=== PATIENT | female | born 1940 | race Caucasian/White ===

== ENCOUNTER 2017-11-25 08:04 | Outpatient (CLI) | payer MEDICARE | END 2017-11-25 08:05 | disposition home or self-care (01) | LOC: BICCT 08:04 | PROVIDERS: ATTEND Internal Medicine Gastroenterology | DX: K57.30 Diverticulosis of large intestine without perforation or abscess without bleeding (principal) | CPT/HCPCS: 74177; 82565 ==

== ENCOUNTER 2018-09-23 12:37 | Outpatient (CLI) | payer MEDICARE ==
[2018-09-23] MEDS ORDERED: ISOVUE-370 76%-LOCM 1 ML ONE (15:09)
--- NOTE | 2018-09-23 15:52 | CT ---
CT OF THE ABDOMEN AND PELVIS WITH IV CONTRAST 09/23/18 PROVIDED CLINICAL HISTORY: Constipation. History of diverticular stricture. FINDINGS: Comparison is made with the study dated 11/25/17. The visualized lung bases are free of significant opacity. The liver, spleen, pancreas, kidneys, and adrenal glands demonstrate an unremarkable CT appearance. There is prominent mural thickening involving the majority of the sigmoid colon, which appears simila r to the prior examination. There is minimal noncircumscribed fluid density present at the left later al margin of the descending colon/sigmoid colon junction as well as within the left paracolic gutter cranially. There is prominent distention by fecal material and gas of the remainder of the colon, wit h the cecal diameter measuring up to 9 cm. There is no small bowel dilatation. There is no evidence f or pneumatosis or portal venous gas. No inflammatory fat stranding is evident. No regional lymph node enlargement evident. Vascular calcif ications are seen. The osseous structures demonstrate no concerning osteoblastic or osteolytic lesions. IMPRESSION: Findings compatible with at least high grade partial obstruction at the level of the sigmoid colonic mucosal thickening, by history related to diverticular disease though carcinoma could have a similar appearance by CT. Findings communicated to the physician on-call, Dr Vargas, at 1556, 09/23/18. POS: OFF
== END 2018-09-23 12:38 | disposition home or self-care (01) ==
LOC: BICCT 12:37
PROVIDERS: ATTEND Physician Assistant Medical
DX: K57.30 Diverticulosis of large intestine without perforation or abscess without bleeding (principal); K59.00 Constipation, unspecified; K63.89 Other specified diseases of intestine
CPT/HCPCS: 74177; Q9966

== ENCOUNTER 2018-09-26 18:27 | Inpatient (IN) | payer MEDICARE ==
[2018-09-26] MEDS ORDERED: Ondansetron PF 4 MG/2 ML Vial ONE ×2 (18:58→22:32)
[2018-09-26 19:05] LABS: Hemoglobin 15.9 g/dL (12.0-16.0); Mean Corpuscular HGB CONC 32.7 g/dL (32.0-36.0); Mean Corpuscular Hemoglobin 33.1 pg (27.0-31.0); Mean Platelet Volume 6.9 fL (7.4-10.4); Platelet Count 494 thou/uL (130-400); RBC Distribution Width 11.3 % (11.5-14.5); White Blood Cell (WBC) Count 14.2 thou/uL (4.8-10.8)
[2018-09-26 19:23] LABS: Band 8 % (5-11); Lymphocytes 11 % (21-51); MDiff Complete? YES; Monocytes 4 % (0-10); Neutrophil 77 % (42-75); Platelet Morphology Comment Appears Increased; RBC Morphology Normal
[2018-09-26 19:47] LABS: ALT (SGPT) 21 U/L (8-55); AST (SGOT) 27 U/L (5-34); Albumin 4.2 g/dL (3.4-4.8); Alkaline Phosphatase 79 U/L (40-150); Anion Gap 24 mmol/L (10-20); BUN (Urea Nitrogen) 30 mg/dL (9.8-20.1); Bilirubin, Total 0.5 mg/dL (0.2-1.2); CK (CPK) 37 U/L (29-168); Calc. Creatinine Clearance 0 mL/min (70-130); Calcium 10.4 mg/dL (7.8-10.44); Carbon Dioxide 19 mmol/L (23-31); Chloride 92 mmol/L (98-107); Estimated GFR-MDRD 25; Globulin 4.1 g/dL (2.4-3.5); Glucose 140 mg/dL (83-110); Lipase 16 U/L (8-78); Potassium 5.1 mmol/L (3.5-5.1); Protein, Total 8.3 g/dL (6.0-8.3); Sodium 130 mmol/L (136-145)
[2018-09-26 20:53] LABS: Bilirubin Moderate (Negative); Blood, Urine Negative (Negative); Clarity CLOUDY (Clear); Glucose, Urine (Dipstick) Negative (Negative); Leukocyte Trace (Negative); Nitrite Negative (Negative); Protein, Urine (Dipstick) 30 mg/dL (Neg-Trace); Specific Gravity, Urine 1.011 (1.002-1.036); pH, Urine 6.5 (5.0-9.0)
[2018-09-26 20:57] LABS: Bacteria/HPF None Seen HPF (None Seen)
[2018-09-26 20:58] LABS: Pathc Cast-AUWi Flag 4.08 (0-2.49)
--- NOTE | 2018-09-26 21:03 | RAD ---
CHEST ONE VIEW ABDOMEN TWO VIEWS: History: Abdominal pain and distention. FINDINGS: The heart size is normal. The aorta is tortuous. The lungs are expanded without lobar consolidation, pneumothoraces, or pleural effusions. No free is seen. Air is noted in the dilated loops of bowel with differential air fluid levels. There is air in the colon. The possibility of high grade obstruction should be considered, particularly in the distal colon. POS: [facility]
[2018-09-26 21:06] LABS: RBC/HPF 0-3 HPF (0-3)
[2018-09-26] MEDS ORDERED: Lidocaine Viscous Sol 2% 15 ml UD Cup ONE (22:13)
[2018-09-26] MEDS ORDERED: Benzocaine 20% Spray 60 ML CAN ONE (22:13)
[2018-09-26] MEDS ORDERED: Morphine 2 MG/ML SYRINGE ONE (22:32)
[2018-09-26] MEDS ORDERED: Ondansetron ODT 4 MG TAB SL PRN (22:57)
[2018-09-26] MEDS ORDERED: Ondansetron PF 4 MG/2 ML Vial IVP PRN (22:57)
[2018-09-26] MEDS ORDERED: Acetaminophen 325 MG TAB PO PRN (22:57)
[2018-09-26] MEDS ORDERED: Sodium Chloride 0.9% 1,000 ML IV SCH (22:57)
[2018-09-26] MEDS ORDERED: Morphine 4 MG/ML VIAL SLOW IVP PRN (23:00)
--- NOTE | 2018-09-26 23:17 | RAD ---
CHEST ONE VIEW: Date: 09-26-18 Time: 10:23 p.m. History: Injury. Chest pain. FINDINGS/IMPRESSION: There has been interval placement of a nasogastric tube with tip in the projection of the stomach. r is noted in loops of small and large bowel. POS: [facility]
[2018-09-26] MEDS: metroNIDAZOLE 500 MG in Premix Bag 1 BAG IVPB SCH (23:34)
[2018-09-27] MEDS: Sodium Chloride 0.9% 1,000 ML IV SCH ×3 (04:37→16:06)
[2018-09-27 05:27] LABS: #Eosinphils 0.1 thou/uL (0.0-0.7); #Lymphocytes 1.5 thou/uL (1.20-3.40); #Monocytes 0.6 thou/uL (0.11-0.59); #Neutrophils 8.1 thou/uL (1.40-6.50); %Basophils 0.1 % (0.0-1.0); %Eosinophils 0.7 % (0.0-10.0); %Lymphocytes 14.1 % (21.0-51.0); %Monocytes 6.2 % (0.0-10.0); %Neutrophils 78.9 % (42.0-75.0); Hemoglobin 13.2 g/dL (12.0-16.0); Mean Corpuscular HGB CONC 31.6 g/dL (32.0-36.0); Mean Corpuscular Hemoglobin 32.3 pg (27.0-31.0); Mean Platelet Volume 6.8 fL (7.4-10.4); Platelet Count 415 thou/uL (130-400); RBC Distribution Width 11.2 % (11.5-14.5); Red Blood Cell (RBC) Count 4.09 mill/uL (4.20-5.40); White Blood Cell (WBC) Count 10.3 thou/uL (4.8-10.8)
[2018-09-27 05:40] LABS: Anion Gap 16 mmol/L (10-20); BUN (Urea Nitrogen) 29 mg/dL (9.8-20.1); Calc. Creatinine Clearance 38 mL/min (70-130); Calcium 8.9 mg/dL (7.8-10.44); Carbon Dioxide 23 mmol/L (23-31); Chloride 100 mmol/L (98-107); Estimated GFR-MDRD 31; Glucose 104 mg/dL (83-110); Magnesium 1.6 mg/dL (1.6-2.6); Phosphorus 4.5 mg/dL (2.3-4.7); Potassium 4.2 mmol/L (3.5-5.1); Sodium 135 mmol/L (136-145)
[2018-09-27] MEDS: metroNIDAZOLE 500 MG in Premix Bag 1 BAG IVPB SCH ×3 (06:16→22:44)
--- NOTE | 2018-09-27 08:19 | CON ---
DATE OF CONSULTATION: REASON FOR CONSULTATION: I was asked to see Ms. Lopez by the emergency room physicians here at [facility]. She presented with abdominal distention and hypertension. HISTORY OF PRESENT ILLNESS: Ms. Lopez is a 77-year-old female, known me from previous evaluations. I have seen her for several years for screening colonoscopies. She came into the office on , four days ago with complaints about a month worth of distention and difficulty having bowel movements. She had no real pain or fever. She has had known stricturing in the sigmoid colon and last had a colonoscopy last summer, at which time we had to use an EGD scope to advance beyond this area. After that, we had to perform a CAT scan, which showed no symptoms of obstruction at that time. CAT scan revealed thickening in the sigmoid colon, something more chronic than acute. We discussed possibility of need for resection. She had no symptoms at that time. She had no evidence of malignancy on her endoscopy and she had normal labs and weight. We placed her on high-fiber diet with some laxatives and Metamucil and she apparently was doing fine. She states around in 2018, she had a bout of what she thought was a gastroenteritis and had a lot of problems with her bowels, but then was doing fine until about a month ago when new symptoms began. She had a normal CBC and comprehensive metabolic profile in the office on Wednesday. She had a CAT scan of the abdomen and pelvis, which apparently showed high-grade sigmoid obstruction. She has continued to pass gas and have small bowel movements, in fact her last bowel movement was yesterday, but in talking with her about these results today, she seemed pretty uncomfortable. We advised her to come to the hospital. Here in the emergency room on arrival, she had a temperature 97, O2 saturation 96% on room air, pulse of 89. In the emergency room, nurse tells me blood pressure in the 80s, however, the lowest I see here at 1839 is 100/36. In triage, apparently did appear somewhat pale and diaphoretic. Initial pulse in the ER was 124, blood pressure initially was 100/36. She has received 2 L of fluid here. She had a comprehensive metabolic profile that showed a sodium of 130, potassium 5.1, chloride 92, bicarb of 19, anion gap calculated at 19, BUN of 30, creatinine of 1.96, glucose of 140. Normal liver function tests. Albumin of 4.2, lipase 16, TSH of 3.5, and a troponin less than 0.01. Her lactic acid was 1.6. Her white count was 14.2, hemoglobin 15.9, MCV 101, platelet count 494. By comparison, labs from showed a white count of 7.9, hemoglobin 13.8, platelet count of 400, MCV of 93, glucose of 106, calcium 10.7. BUN and creatinine of 22 and 1.1 at that time. Sodium is 137, potassium is 5.4. Presently, she states she feels pretty uncomfortable, but no overt pain. She just feels tight. She feels nauseated, but has not thrown up. She has really just had some liquids over the weekend, but not much. Again, she has had a bowel movement yesterday. She has noted no blood in her stool. No fever. No dysuria, frequency, or urgency. PAST MEDICAL HISTORY: Notable for hypertension, hypothyroidism, and hyperlipidemia. She has had polyps with last colonoscopy in November of 2017. PAST SURGICAL HISTORY: She had a hysterectomy and has had children. No other surgeries. SOCIAL HISTORY: She drinks cold drinks a day. She does not drink more than four drinks a day. She does not use drugs. She does not smoke and has not in the past. MEDICATIONS: In the emergency room, she received 2 L of normal saline. She has received, 1. Some Zofran. 2. Uloric 80 mg. 3. Furosemide 20 mg every other day. 4. Benicar 40 mg once daily. 5. Paroxetine 37.5 mg daily. 6. Omeprazole 40 mg daily. 7. Levothyroxine 88 mcg daily. REVIEW OF SYSTEMS: GENERAL: She denies chills or fever. HEENT: Denies redness, eye discharge, change in vision. Negative for oral abnormalities, difficulty swallowing, or throat pain. CV: Denies chest pain, shortness of breath, or diaphoresis. RESPIRATORY: Denies cough or shortness of breath. GI: She has some diffuse abdominal discomfort, decreased appetite, constipation, inability to eat, to me she denied vomiting, but the emergency room physician noted she has vomited. She does feels nauseated and feels like she will vomit, if she eats much, so she has not been. No hematochezia, hematemesis, melena, or hematochezia. : Negative for dysuria, frequency, or urgency. SKIN: Negative for rashes or lesions. NEUROLOGIC: No history of focal weakness, TIA, stroke, or gait changes. PSYCHIATRIC: She is on the antidepressant medicine and is doing well with that and has no depression issues. PHYSICAL EXAMINATION: VITAL SIGNS: Most recent vital signs, pulse down to the 80s, blood pressure 134/67, afebrile. T-max of 98.7 at 2135. GENERAL: She is little bit pale. SKIN: Slightly clammy. She is not diaphoretic. She is perfusing well in the extremities. HEENT: Oropharynx is dry. Conjunctivae and sclerae clear. NECK: Supple. No adenopathy. HEART: Regular rate and rhythm without clicks, rubs, or murmurs. LUNGS: Clear. LYMPHATICS: There is no adenopathy in the neck, axillary, or inguinal regions. ABDOMEN: There is no fresh scar in the lower abdomen except previous hysterectomy. She has no bowel sounds. She is nontender. She is tympanitic. There is no rebound or guarding. She does not appear to be in pain. EXTREMITIES: No clubbing, cyanosis, or edema. SKIN: Without rash or lesions. NEUROLOGIC: She moves everything in the upper and lower extremities with equal strength. Extraocular muscle intact. Cranial nerves are intact. RECTAL: Reveals soft stool in the vault. KUB here reveals distention of small and large bowel, possibly some gastric distention. The radiologist is concerned about this obstruction. IMAGING: I have reviewed the CAT scan from 09/23. The cecum was dilated at 9 cm at that time. She had thickening in the sigmoid colon, which was really no different than a CAT scan from November of 2017. There is no inflammatory stranding present. No lymph node enlargement or vascular calcifications. Minimal non-circumscribed fluid density at the left lateral margin, descending colon, sigmoid colon junction as well as in the left paracolic gutter. There is distention offecal matter material and gas remainder of the colon, cecal diameter 9 cm. No small bowel dilatation was seen on that study. There was no pneumatosis on that study that was from Wednesday. I reviewed her KUB from today as well. There is no free air. Otherwise, I agree with the report from the radiologist. There are jakob on her CAT scan and x-ray consistent with previous hysterectomy in low pelvis, bladder was nondistended. ASSESSMENT: This is a 77-year-old female. Her last colonoscopy was in November of 2017. At that time, we had to traverse the sigmoid colon with the upper GI scope. All polyps have been benign. She did carry a diagnosis of ulcerative colitis, but only pathology ever found on that where she had been scoped previously in [place] was of microscopic colitis. All the biopsies I have taken in 2014/2015 showed normal colon with no underlying colitis in remission or active and no dysplasia. She did have a small polyp in the right colon. This was called sporadic adenoma and that was consistent with the fact that there was no signs of acute or chronic colitis or old colitis changes in the colon region. At this time, I think she developed a sigmoid obstruction from severe diverticular disease. She does not appear to have acute diverticulitis. The fluid stranding is probably related to distention inflammation. However, I think we should empirically cover with antibiotics. Her leukocytosis is likely related to her dehydration and stress. She has received 2 L of fluid here, but will need to receive more. I have talked with Dr. Kvng De Luna, General Surgery about her condition, but I do not think she needs emergency surgery tonight, but will likely need surgery tomorrow. He understands this. We will plan to see her in the morning with his other changes. I have explained to the patient that she will likely need a diverting ostomy as she is not going to be able to prepped. She is still passing small amounts of gas and had a small bowel movement yesterday, but with the amount of distention shown, I do not think she will be able to drink a bowel prep and I do not think it would be safe to try to give her enemas from below due to risk of perforation. Dehydration secondary to poor p.o. intake with hyponatremia, little bit elevated BUN and creatinine. On last assessment, there seems to be no signs of infarction or ischemia. She has a normal lactic acid. PLAN: Admission to the hospital. IV fluids, normal saline 100 an hour, ulcer prophylaxis with Protonix. Zofran for nausea. We will place NG tube and see if we can decompress her small bowel and stomach if those are in fact distended. She will have repeat labs tomorrow morning. Plan, we are going to start Levaquin and Flagyl empirically this evening as well. We will start PlexiPulse for DVT prophylaxis. She will likely have surgery tomorrow. Job ID: [id number]
--- NOTE | 2018-09-27 10:31 | CON ---
DATE OF CONSULTATION: CHIEF COMPLAINT: Nausea, abdominal distention, and abdominal pain. HISTORY OF PRESENT ILLNESS: The patient is a 77-year-old female with a known sigmoid stricture presumably secondary to diverticular disease, who over the last couple of weeks has been having progressive abdominal distention and nausea. She is passing a little flatus. She has not vomited. She says last bowel movement was about a day and a half ago. PAST MEDICAL HISTORY: Significant for hypertension, hypothyroidism. PAST SURGICAL HISTORY: She has had a hysterectomy, spontaneous vaginal delivery. MEDICATIONS: 1. Uloric 80 mg daily. 2. Torsemide 20 mg every other day. 3. Benicar 40. 4. Paroxetine 37.5. 5. Omeprazole and levothyroxine. ALLERGIES: SHE HAS ALLERGIES TO ASPIRIN AND CODEINE. SOCIAL HISTORY: She is , retired. No tobacco. Social alcohol. FAMILY HISTORY: She has an aunt with history of colon cancer. Her mother had cervical cancer and lung cancer. Father had lung cancer and COPD. PHYSICAL EXAMINATION: VITAL SIGNS: Temperature 98.7, pulse 84, blood pressure 116/70. GENERAL: She is awake, alert. She has an NG tube in place, but nothing coming out. HEENT: Otherwise unremarkable. LUNGS: Clear. HEART: Regular rate and rhythm. ABDOMEN: Obese, distended. No significant tenderness. She has well-healed surgical scar, Pfannenstiel. EXTREMITIES: Unremarkable. LABORATORY DATA: Her white count is 10.3, H and H are 13 and 41, and platelet count of 415. Electrolytes are fine. Urinalysis, 7 to 10 white cells. Acute abdominal series show dilated loops of both large and small bowel consistent with a high-grade obstruction of the distal colon. ASSESSMENT: Large bowel obstruction. PLAN: Laparotomy, sigmoid colon resection, Vanesa procedure. I have discussed the planned procedure as well as risk of bleeding, infection, injury to bowel and bladder, she understands and gives informed consent. Job ID: [id number]
[2018-09-27] MEDS ORDERED: Sodium Chloride 0.9% 1,000 ML IV SCH (11:15)
--- NOTE | 2018-09-27 18:12 | HP ---
CHIEF COMPLAINT: Abdominal pain with nausea and vomiting. HISTORY OF PRESENT ILLNESS: Ms. Lopez is a very pleasant 77-year-old woman, who presented to the ER yesterday due to persistent abdominal pain associated with nausea and vomiting. The patient states her symptoms first started last week when she began to experience abdominal distention and unable to empty her bowels. As the week progressed, she began to experience vomiting and became unable to tolerate any oral intake. She developed dry heaving over the weekend despite no longer eating or drinking. Due to increasing abdominal pain, she decided to seek medical attention. The patient had reached out to Dr. Worthington, who prompted her to come to the ER. She did undergo a CT scan on Wednesday, on September 23, and noted to have findings consistent with a high-grade partial obstruction at the level of the sigmoid colon. The patient states she does have a history of diverticular disease and has issues with her bowels every few months. On presentation to the ER, she underwent further investigations including a chest x-ray that demonstrated placement of an NG tube. Air was noted in the loops of small and large bowel. She also underwent an acute abdominal series that showed no free air. There was air again noted in the dilated loops of bowel with differential air-fluid levels and air in the colon. Findings were felt to be consistent with a possible high-grade obstruction, particularly in the colon. The patient was admitted for further management. The case was discussed with Dr. Worthington as well as Dr. De Luna. Since the admission, the patient has been receiving IV hydration and was started on Protonix. She was given Zofran for nausea and vomiting, and since then, her vomiting has subtle. NG tube has been removed. Dr. Worthington did start the patient on empiric IV antibiotics including Levaquin and Flagyl. She was seen by Dr. De Luna, who had recommended surgery. She had plans to undergo laparotomy with sigmoid colon resection, Vanesa procedure this morning. The patient, however, began to move her bowels early today and has had 4 very large bowel movements without any bright red blood in her stools or melena. She has remained n.p.o., and has not had any nausea or vomiting. The patient is eager to find out if surgery is still required or if she would be able to resume her diet and go home. REVIEW OF SYSTEMS: The patient denies having any fevers, chills, or sweats. Denies having any headaches or dizziness. Again, has had no further nausea or vomiting. Denies any abdominal pain. Still continues with abdominal distention, but this has significantly improved from initial presentation. No urinary symptoms. She has moved 4 very large bowel movements today without any straining or abdominal cramping. Denies having any chest pain, palpitations, or shortness of breath. No lower leg edema. All other review of systems is negative. PAST MEDICAL HISTORY: 1. Hypertension. 2. Hypothyroidism. 3. Diverticular disease. 4. GERD. 5. Gout. PAST SURGICAL HISTORY: 1. Hysterectomy. 2. Spontaneous vaginal delivery. SOCIAL HISTORY: The patient is and retired. She lives with her . Denies any tobacco use. She drinks alcohol socially and denies any illicit drug use. FAMILY HISTORY: Her father had lung cancer and COPD. Her mother was diagnosed with cervical cancer and lung cancer. Her aunt was diagnosed with colon cancer. ALLERGIES: 1. ASPIRIN. 2. CODEINE. 3. PENICILLIN. CURRENT MEDICATIONS: 1. Ergocalciferol. 2. Paroxetine. 3. Olmesartan. 4. Torsemide. 5. Rosuvastatin. 6. Levothyroxine. 7. Febuxostat. PHYSICAL EXAMINATION: GENERAL: The patient appears well developed, well nourished, and is in no acute distress. VITAL SIGNS: Temperature 98.4, pulse 103, respirations 16, O2 saturation 92% on room air, BP 116/73. HEENT: Normocephalic and atraumatic. Pupils are equal, round, and reactive to light. Sclerae without icterus. Oropharynx is clear. NECK: Supple without lymphadenopathy. LUNGS: Clear to auscultation bilaterally without wheezes, rales, or rhonchi. CARDIAC: Regular rate and rhythm. ABDOMEN: Soft, but notably distended. Hypoactive bowel sounds present. No guarding or rigidity. No renal angle tenderness. EXTREMITIES: Without any lower leg edema or calf swelling/tenderness. Mechanical SCDs in place. LABORATORY DATA: White blood count 10.3, improved from 14.2 on initial presentation; hemoglobin 13.2; hematocrit 41.2; platelets 415. Sodium 135; potassium 4.2; chloride 100; anion gap 16; BUN 29; creatinine 1.6 today, improved from 1.86; eGFR 31, improved from 25; glucose 104. Lactic acid on initial presentation was 1.6. Calcium 8.9. Phosphorus 4.5. Magnesium 1.6. LFTs, unremarkable. TSH 3.5181. Lipase 16. IMAGING DATA: As mentioned above in HPI. IMPRESSION AND PLAN: Ms. Lopez is a very pleasant 77-year-old woman, who is being admitted for management of the followin. Partial large bowel obstruction. The patient has had significant improvement in nausea and vomiting, and her abdominal pain has fully resolved. She does continue with abdominal distention, though she states that it significantly improved to what it was yesterday. She has been able to move a large amount of stool 4 times. There were plans for her to undergo laparotomy with sigmoid colon resection and Vanesa procedure; however, this was canceled given the fact that she has moved her bowels. Dr. De Luna has re-evaluated the patient, and given the fact that she is still distended, I feel she would benefit from sigmoid colon resection, but may no longer require a diverting colostomy. The plan is for her to proceed with surgery tomorrow. Per the patient, he has advised she may continue clear liquid diet this evening and remain n.p.o. at midnight. Further plans as per Surgical Team. 2. Hypertension. Her blood pressure is controlled. We will resume home medications, but hold medications if blood pressure is on the low side. 3. Acute kidney injury. Improving following IV fluids. She is on her torsemide at home. Has no evidence of lower limb edema at present, and lungs are clear. However, to avoid fluid overload, we will cut down her IV fluids to 55 mL an hour while she is taking foods and may bump up to 75 mL an hour at midnight when she is n.p.o. We will check BNP. 4. Hypothyroidism. Resume home medication. 5. Code status. The patient was placed on full code status at initial presentation; however, at present, she is expressing she wishes to be DNR. I have placed a consultation to Palliative Care for discussion of advanced directives. 6. Deep venous thrombosis prophylaxis. Mechanical SCDs in place. The patient's case was discussed with Dr. Sam, who agrees with plan of care as described above. Job ID: [id number]
--- NOTE | 2018-09-27 19:11 | PRG ---
DATE OF SERVICE: 09/27/2018 SUBJECTIVE: Ms. Lopez actually had several bowel movements today and she is actually feeling better. Dr. De Luna decided to hold off and we are going to re-evaluate her tomorrow. OBJECTIVE: VITAL SIGNS: Temperature is 98, pulse is 101, blood pressure 125/65. LUNGS: Clear. HEART: Regular rate and rhythm without clicks or murmurs. ABDOMEN: Soft, positive bowel sounds. EXTREMITIES: No clubbing, cyanosis, or edema. LABORATORY DATA: White count 10.3, hemoglobin is 13.2, and platelet count 415. Sodium 135. BUN and creatinine of 29 and 1.63. ASSESSMENT: High-grade obstruction, sigmoid colon, likely related to chronic diverticular disease. It may be an acute component. RECOMMENDATIONS: Repeat labs tomorrow. If the patient continues to have bowel movements, we will give a bit of MiraLAX. We will start that this evening and may be she can get a bowel prep, so she can get a full colonoscopy. Job ID: [id number]
[2018-09-27] MEDS ORDERED: Polyethylene Glycol 3350 17 GM Packet PO SCH (19:45)
[2018-09-27] MEDS ORDERED: Famotidine/PF 20 mg/2ml Vial SLOW IVP SCH (21:00)
[2018-09-28] MEDS: Sodium Chloride 0.9% 1,000 ML IV SCH (02:45)
[2018-09-28] MEDS: Levothyroxine Sodium 88 MCG TAB PO SCH (05:01)
[2018-09-28] MEDS: metroNIDAZOLE 500 MG in Premix Bag 1 BAG IVPB SCH ×3 (06:15→23:32)
[2018-09-28 06:52] LABS: #Eosinphils 0.1 thou/uL (0.0-0.7); #Lymphocytes 1.1 thou/uL (1.20-3.40); #Monocytes 0.7 thou/uL (0.11-0.59); #Neutrophils 4.8 thou/uL (1.40-6.50); %Lymphocytes 16.1 % (21.0-51.0); %Monocytes 10.2 % (0.0-10.0); %Neutrophils 71.8 % (42.0-75.0); Hemoglobin 12.9 g/dL (12.0-16.0); Mean Corpuscular Hemoglobin 32.8 pg (27.0-31.0); Mean Platelet Volume 6.7 fL (7.4-10.4); Platelet Count 394 thou/uL (130-400); RBC Distribution Width 11.2 % (11.5-14.5); Red Blood Cell (RBC) Count 3.93 mill/uL (4.20-5.40); White Blood Cell (WBC) Count 6.7 thou/uL (4.8-10.8)
[2018-09-28 06:58] LABS: Anion Gap 15 mmol/L (10-20); BUN (Urea Nitrogen) 18 mg/dL (9.8-20.1); Calc. Creatinine Clearance 57 mL/min (70-130); Calcium 9.4 mg/dL (7.8-10.44); Carbon Dioxide 25 mmol/L (23-31); Chloride 103 mmol/L (98-107); Estimated GFR-MDRD 49; Glucose 104 mg/dL (83-110); Potassium 5.3 mmol/L (3.5-5.1); Sodium 138 mmol/L (136-145)
[2018-09-28] MEDS ORDERED: GoLYTELY 4,000 ml Bottle PO SCH (09:00)
--- NOTE | 2018-09-28 09:22 | PRG ---
DATE OF SERVICE: 09/28/2018 SUBJECTIVE: The patient has been having multiple bowel movements. No nausea or vomiting. OBJECTIVE: VITAL SIGNS: Temperature 97.8, pulse 94, blood pressure 140/81. GENERAL: She is awake, alert. ABDOMEN: Still massively distended and tympanic, but nontender. ASSESSMENT: Partial bowel obstruction. PLAN: We will try a slow prep. If it is successful and able to decompress her gut, she may be able to tolerate resection and primary anastomosis, however, if unable to, we will plan on diverting colostomy. Job ID: [id number]
[2018-09-28] MEDS: Torsemide 20 MG TAB PO SCH (09:52)
[2018-09-28] MEDS: PARoxetine CR 12.5 MG TAB PO SCH (09:53)
[2018-09-28] MEDS: Rosuvastatin 10 MG TAB PO SCH (09:54)
[2018-09-28] MEDS: Polyethylene Glycol 3350 17 GM Packet PO SCH (09:58)
--- NOTE | 2018-09-28 16:20 | PRG ---
DATE OF SERVICE: 09/28/2018 SUBJECTIVE: Ms. Lopez is having bowel movements with her bowel prep. She is without complaints. Temperature is 98, pulse 94 to 103, blood pressure 138/79. I did not examine her abdomen as she is sitting on the commode as we speak. ASSESSMENT: High-grade sigmoid colon obstruction felt to be from chronic diverticular disease. She had CAT scan findings suggestive this without obstruction back last fall. Now, she presents with subacute obstruction. She has improved some with antibiotics. I have talked with her with Dr. De Luna. She is tolerating a prep. We are going to proceed with sigmoid resection tomorrow. She has had a recent colonoscopy with no signs of malignancy just last summer. We will follow along with you. Job ID: [id number]
--- NOTE | 2018-09-28 16:31 | PDOC.PN ---
- Subjective Encounter Start Date: 09/28/18 Encounter Start Time: 16:29 Subjective: Feeling well today and has been up and walking around. -: No chest pain or sob. Slightly increased abdominal bloating -: since starting the golVitasolly. No bowel movement yet. Denies any nausea or vomiting. No abdominal pain. Urinating without difficulty. No chest pain or sob. Overall still feels better than when she first came in. - Objective Resuscitation Status - Order Detail: 09/27/18 21:41 Resuscitation Status Routine Co-Sign Provider: Resuscitation Status: DNAR: NO Resuscitation Discussed with: patient Additional comments: Jennie discussed with patient, in H&P Vital Signs & Weight: Vital Signs (12 hours) Temp Pulse Resp BP Pulse Ox 09/28/18 16:18 97.4 F L 104 H 18 145/84 H 96 09/28/18 12:20 98.1 F 103 H 16 138/79 96 09/28/18 08:50 97.8 F 94 16 140/81 92 L 09/28/18 07:30 97.8 F 94 16 140/81 92 L 09/28/18 04:41 98.2 F 95 18 134/80 94 L Weight Admit Weight 183 lb 8 oz Weight 183 lb 8 oz I&O: 09/27/18 09/28/18 09/29/18 06:59 06:59 06:59 Intake Total 4060 Output Total 60 Balance 4000 Result Diagrams: 09/28/18 06:19 09/28/18 06:19 Phys Exam - Physical Examination Constitutional: NAD HEENT: PERRLA, moist MMs, sclera anicteric, oral pharynx no lesions Neck: supple, full ROM Respiratory: no wheezing, no rales, no rhonchi, clear to auscultation bilateral Cardiovascular: RRR Gastrointestinal: soft, non-tender, no distention hypoactive bowel sounds Musculoskeletal: pulses present trace edema Neurological: normal sensation, moves all 4 limbs Psychiatric: normal affect, A&O x 3 Skin: no rash, normal turgor Dx/Plan (1) Hyperkalemia Code(s): E87.5 - HYPERKALEMIA Status: Acute (2) Partial bowel obstruction Code(s): K56.600 - PARTIAL INTESTINAL OBSTRUCTION, UNSPECIFIED TO CAUSE Status: Acute (3) Abdominal distention Code(s): R14.0 - ABDOMINAL DISTENSION (GASEOUS) Status: Acute (4) Hypertension Code(s): I10 - ESSENTIAL (PRIMARY) HYPERTENSION Status: Chronic (5) Hypercholesterolemia Code(s): E78.00 - PURE HYPERCHOLESTEROLEMIA, UNSPECIFIED Status: Chronic - Plan cont current plan of care Patient normally on diuretics. Has trace edema. BNP 56.6 -: Was receiving NS at 125 cc/hr yesterday, which we cut down to 55/hr. -: Patient has been drinking alot of fluids by mouth. -: Will keep KVO and resume fluids at midnight. NPO at midnight. -: Slightly increased abdominal distention, no pain, n/v. continue bowel prep with plans to undergo surgery tomorrow morning as per Dr. De Luna. Monitor K+, may normalize once she starts to move her bowels.
[2018-09-28] MEDS ORDERED: Famotidine/PF 20 mg/2ml Vial SLOW IVP SCH (21:00)
[2018-09-29] MEDS: metroNIDAZOLE 500 MG in Premix Bag 1 BAG IVPB SCH ×2 (06:25→17:34)
[2018-09-29] MEDS: Levothyroxine Sodium 88 MCG TAB PO SCH (06:26)
[2018-09-29 06:37] LABS: #Eosinphils 0.1 thou/uL (0.0-0.7); #Lymphocytes 1.2 thou/uL (1.20-3.40); #Monocytes 0.6 thou/uL (0.11-0.59); #Neutrophils 4.2 thou/uL (1.40-6.50); %Basophils 0.6 % (0.0-1.0); %Eosinophils 1.3 % (0.0-10.0); %Lymphocytes 19.8 % (21.0-51.0); %Monocytes 9.4 % (0.0-10.0); Hemoglobin 13.2 g/dL (12.0-16.0); Mean Corpuscular HGB CONC 32.1 g/dL (32.0-36.0); Mean Corpuscular Hemoglobin 32.8 pg (27.0-31.0); Mean Platelet Volume 6.9 fL (7.4-10.4); Platelet Count 422 thou/uL (130-400); RBC Distribution Width 11.2 % (11.5-14.5); Red Blood Cell (RBC) Count 4.03 mill/uL (4.20-5.40); White Blood Cell (WBC) Count 6.1 thou/uL (4.8-10.8)
[2018-09-29 06:59] LABS: Anion Gap 20 mmol/L (10-20); BUN (Urea Nitrogen) 17 mg/dL (9.8-20.1); Calc. Creatinine Clearance 52 mL/min (70-130); Calcium 9.8 mg/dL (7.8-10.44); Carbon Dioxide 25 mmol/L (23-31); Chloride 98 mmol/L (98-107); Estimated GFR-MDRD 44; Glucose 125 mg/dL (83-110); Sodium 139 mmol/L (136-145)
[2018-09-29] MEDS ORDERED: Sodium Chloride 0.9% 0 ML ONE (08:39)
[2018-09-29] MEDS ORDERED: Fentanyl 250 MCG/5 ML VIAL ONE (08:45)
[2018-09-29] MEDS ORDERED: Midazolam HCl 2 mg/2 ml Vial ONE (08:53)
[2018-09-29] MEDS ORDERED: Fentanyl 100 MCG/2 ML VIAL ONE ×2 (08:53→13:09)
[2018-09-29] MEDS: Polyethylene Glycol 3350 17 GM Packet PO SCH (09:01)
[2018-09-29] MEDS: PARoxetine CR 12.5 MG TAB PO SCH (09:01)
[2018-09-29] MEDS: Torsemide 20 MG TAB PO SCH (09:02)
[2018-09-29] MEDS: Rosuvastatin 10 MG TAB PO SCH (09:02)
[2018-09-29] MEDS ORDERED: metroNIDAZOLE 500 MG/100 ML BAG ONE (09:24)
[2018-09-29] MEDS ORDERED: Levofloxacin 500 mg/D5W 100 ml Premix Bag ONE (09:24)
--- NOTE | 2018-09-29 09:27 | PRG ---
DATE OF SERVICE: 09/29/2018 SUBJECTIVE: The patient has been putting out a little bit of stool. She says she feels a little bit better, but she is still very distended. She had some mild tachycardia last night. OBJECTIVE: VITAL SIGNS: She is afebrile. ABDOMEN: Tympanic, distended. ASSESSMENT: She has still very high-grade obstruction of the sigmoid colon, unable to get a good prep. PLAN: Exploratory laparotomy, sigmoid colectomy and temporary sigmoid colostomy. We will also place a central line for possible potential TPN. Job ID: [id number]
[2018-09-29] MEDS ORDERED: Neomycin-Polymyxin 1 ML AMP ONE (10:36)
[2018-09-29] MEDS ORDERED: hydrALAZINE 20 MG/ML VIAL SLOW IVP PRN (11:17)
[2018-09-29] MEDS ORDERED: Morphine 4 MG/ML VIAL SLOW IVP PRN (11:17)
[2018-09-29] MEDS ORDERED: Promethazine HCl 25 MG/ML VIAL IM PRN ×2 (11:17→11:34)
[2018-09-29] MEDS ORDERED: Morphine 2 MG/ML SYRINGE SLOW IVP PRN (11:17)
[2018-09-29] MEDS ORDERED: HYDROmorphone 2 MG/ML VIAL SLOW IVP PRN (11:34)
[2018-09-29] MEDS ORDERED: Ondansetron HCl/PF 4 MG/2 ML Vial IVP PRN (11:34)
[2018-09-29] MEDS ORDERED: Promethazine HCl 25 MG/ML VIAL SLOW IVP PRN (11:34)
--- NOTE | 2018-09-29 11:45 | RAD ---
XR Chest 1 View Portable History: [Central line placement] Comparison: Radiograph September 26, 2018 Findings: Heart size mildly enlarged. Mild pulmonary venous congestion. Small effusions. Central veno us catheter is in place with tip at the cavoatrial junction. No acute osseous abnormality. Impression: Uncomplicated placement central venous catheter.
[2018-09-29] MEDS: Acetaminophen 1,000 MG in Premix Bag 1 BAG IVPB SCH ×3 (14:08→23:31)
[2018-09-29] MEDS: Ketorolac Tromethamine 30 MG/ML VIAL IVP SCH ×3 (14:08→23:31)
[2018-09-29] MEDS ORDERED: Bupivacaine HCl 0.5%/Epinephrine 1:200,000/PF 30 ml Vial ONE (15:14)
--- NOTE | 2018-09-29 15:32 | PDOC.PN ---
- Subjective Encounter Start Date: 09/29/18 Encounter Start Time: 15:00 Mr. Lopez was seen today in follow-up of Partial small bowel Obstruction. She has returned from surgery. She has been a bit sleepy all day, and notes some post surgical pain. - Objective Resuscitation Status - Order Detail: 09/27/18 21:41 Resuscitation Status Routine Co-Sign Provider: Resuscitation Status: DNAR: NO Resuscitation Discussed with: patient Additional comments: Jennie discussed with patient, in H&P MAR Reviewed: Yes Vital Signs & Weight: Vital Signs (12 hours) Temp Pulse Resp BP Pulse Ox 09/29/18 14:00 98.4 F 100 20 122/58 L 99 09/29/18 07:54 98.2 F 99 22 H 142/83 H 92 L 09/29/18 03:40 98.0 F 95 18 154/85 H 95 Weight Admit Weight 183 lb 8 oz Weight 183 lb 8 oz I&O: 09/28/18 09/29/18 09/30/18 06:59 06:59 06:59 Intake Total 4060 2635 700 Output Total 60 Balance 4000 2635 700 Result Diagrams: 09/29/18 06:09 09/29/18 06:09 Additional Labs: Accuchecks 09/29/18 11:57 POC Glucose 130 H Phys Exam - Physical Examination HEENT: PERRLA Respiratory: no wheezing, no rales, no rhonchi, clear to auscultation bilateral Cardiovascular: RRR, no significant murmur, no rub Gastrointestinal: soft + mildly distended bowel sounds decreased Musculoskeletal: pulses present, edema present trace pedal edema Dx/Plan (1) Partial bowel obstruction Code(s): K56.600 - PARTIAL INTESTINAL OBSTRUCTION, UNSPECIFIED TO CAUSE Status: Acute (2) Hypertension Code(s): I10 - ESSENTIAL (PRIMARY) HYPERTENSION Status: Chronic (3) Hypothyroidism Code(s): E03.9 - HYPOTHYROIDISM, UNSPECIFIED Status: Chronic - Plan * Partial small bowel obstruction- s/p resection - continue as per General Surgery * HTN- blood pressure is controlled- Hydralazine as needed * Hypothyroidism- will re-start Levothyroxine when possible .
[2018-09-29] MEDS: Sodium Chloride 0.9% 1,000 ML IV SCH ×2 (15:35→20:21)
[2018-09-29] MEDS ORDERED: Rocuronium Bromide 10 MG/ML (10ML VIAL) ONE (16:12)
[2018-09-29] MEDS ORDERED: Glycopyrrolate 0.2 MG/ML 5 ML SYRINGE ONE (16:12)
[2018-09-29] MEDS ORDERED: PHENYLEPHRINE-NS 100 MCG/ML 10 ML SYRINGE ONE (16:12)
[2018-09-29] MEDS ORDERED: PROPOFOL 200 MG/20 ML VIAL ONE (16:12)
[2018-09-29] MEDS ORDERED: Dexamethasone 20 MG/5 ML VIAL ONE (16:12)
[2018-09-29] MEDS ORDERED: Succinylcholine Chloride 20 MG/ML 10 ml SYRINGE FS ONE (16:12)
[2018-09-29] MEDS ORDERED: Lidocaine 1% PF 5 ML VIAL ONE (16:12)
[2018-09-29] MEDS ORDERED: Ondansetron PF 4 MG/2 ML Vial ONE (16:12)
[2018-09-29] MEDS ORDERED: ePHEDrine 50 MG/ML VIAL ONE (16:12)
--- NOTE | 2018-09-29 17:59 | PRG ---
DATE OF SERVICE: 09/29/2018 SUBJECTIVE: Ms. Lopez is resting comfortably in bed. She has had surgery today. OBJECTIVE: VITAL SIGNS: Temperature is 98, pulse 100, blood pressure 120/58. ABDOMEN: Soft and nontender. It is less distended. She has an ileostomy, which is pink in left lower quadrant, midline, incision dressed, which is clean and dry. LABORATORY DATA: White count 6.1, hemoglobin 13.2, platelet count 422. BUN and creatinine are 17 and 1.19 today. This surgical pathology results are pending. We will continue to follow along with you during hospitalization. Job ID: [id number]
[2018-09-29] MEDS ORDERED: Sodium Chloride 0.9% 500 ML IV SCH (18:45)
[2018-09-30] MEDS: metroNIDAZOLE 500 MG in Premix Bag 1 BAG IVPB SCH ×3 (02:20→18:08)
[2018-09-30 04:28] LABS: #Lymphocytes 0.9 thou/uL (1.20-3.40); #Monocytes 0.7 thou/uL (0.11-0.59); #Neutrophils 6.1 thou/uL (1.40-6.50); %Basophils 0.2 % (0.0-1.0); %Eosinophils 0.1 % (0.0-10.0); %Lymphocytes 12.1 % (21.0-51.0); %Monocytes 8.5 % (0.0-10.0); %Neutrophils 79.1 % (42.0-75.0); Hemoglobin 10.6 g/dL (12.0-16.0); Mean Corpuscular HGB CONC 31.9 g/dL (32.0-36.0); Mean Corpuscular Hemoglobin 33.1 pg (27.0-31.0); Mean Platelet Volume 6.7 fL (7.4-10.4); Platelet Count 306 thou/uL (130-400); RBC Distribution Width 11.2 % (11.5-14.5); Red Blood Cell (RBC) Count 3.21 mill/uL (4.20-5.40); White Blood Cell (WBC) Count 7.7 thou/uL (4.8-10.8)
[2018-09-30 04:57] LABS: Anion Gap 10 mmol/L (10-20); BUN (Urea Nitrogen) 16 mg/dL (9.8-20.1); Calc. Creatinine Clearance 63 mL/min (70-130); Calcium 8.1 mg/dL (7.8-10.44); Carbon Dioxide 28 mmol/L (23-31); Chloride 105 mmol/L (98-107); Estimated GFR-MDRD 54; Glucose 121 mg/dL (83-110); Potassium 4.3 mmol/L (3.5-5.1); Sodium 139 mmol/L (136-145)
[2018-09-30] MEDS: Ketorolac Tromethamine 30 MG/ML VIAL IVP SCH ×3 (05:40→18:08)
[2018-09-30] MEDS: Acetaminophen 1,000 MG in Premix Bag 1 BAG IVPB SCH (05:40)
[2018-09-30] MEDS: Levothyroxine Sodium 88 MCG TAB PO SCH (05:41)
[2018-09-30] MEDS: Sodium Chloride 0.9% 1,000 ML IV SCH ×3 (06:02→18:07)
[2018-09-30] MEDS ORDERED: Sodium Chloride 0.9% 1,000 ML IV SCH (08:00)
[2018-09-30] MEDS ORDERED: Famotidine 20 MG TAB PO SCH (09:00)
--- NOTE | 2018-09-30 09:25 | OP ---
DATE OF PROCEDURE: 09/29/2018 PREOPERATIVE DIAGNOSIS: Large bowel obstruction. PROCEDURES PERFORMED: Exploratory laparotomy, sigmoid colon resection, and descending colostomy. 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 FINDINGS: Inflammatory mass underneath the peritoneal reflection in the pelvis, very dilated large and small bowel. DESCRIPTION OF PROCEDURE: After informed consent was obtained, the patient was taken to the operating room and given general endotracheal anesthesia placed in supine position. Her abdomen was prepped and draped in the usual fashion. Low midline incision was performed. Subcu divided sharply. The fascia was incised with a 10 blade. The abdomen explored. The large and small bowel massively dilated. Retraction was achieved utilizing a Bookwalter retractor. The white line of Toldt was incised laterally. The sigmoid colon was mobilized down into the pelvis. The left ureter was visualized. Then, the peritoneum was opened anteriorly and onto the right side. Then, the colon was divided at the proximal sigmoid area with the IRLANDA. The mesentery divided with the LigaSure. Dissection was very tedious down the pelvis as it was inflamed, woody, indurated, was able to get beneath the indurated area, but was fairly deep in the pelvis. The rectum was divided utilizing the contour stapler. The specimen was sent to pathology for further analysis. The abdomen was thoroughly irrigated with saline. Then, the skin was grasped with a Jimi clamp and a circular skin incision was performed on the left side. The fascia was incised in a cruciate manner and dilated. The colon was grasped with a Lisa and brought through, sutured to the posterior fascia with interrupted 2-0 silk sutures. The omentum was placed anterior. The abdominal wall fascia closed with a running looped #1 PDS. The subcu was irrigated with pulse ex chef and solution. Hemostasis assured and the skin closed with skin jakob. Then, this was protected with sterile bandage dressing. The colon was further secured to the anterior fascia with interrupted 2-0 Vicryl. Then, the colostomy was matured with 3-0 Vicryl. Wafer and appliance were then placed. The patient tolerated the procedure well, transferred to Recovery in good condition. Sponge and needle count verified and correct x2. Job ID: [id number]
--- NOTE | 2018-09-30 09:26 | OP ---
DATE OF PROCEDURE: 09/29/2018 PREOPERATIVE DIAGNOSIS: Large bowel obstruction. PROCEDURE PERFORMED: Left subclavian central line placement. INDICATIONS FOR PROCEDURE: The patient is a 77-year-old female, who has had a large bowel obstruction for 10 days and malnourished. FINDINGS: Good backflow of venous blood, J-wire threaded easily. DESCRIPTION OF PROCEDURE: After informed consent was obtained, the patient was placed in Trendelenburg position. Left chest and neck were prepped and draped in usual fashion. An introducer needle was inserted in the left subclavian with good backflow of venous blood, J-wire threaded easily. Skin incised with 11 blade. The skin and subcu dilated with the dilator. Then, pre-flushed triple-lumen catheter inserted over the wire, and the wire was removed. Each of the ports aspirated, good backflow of venous blood, and flushed with saline, sutured in place with interrupted 3-0 silk suture. Sterile bandage applied. The patient tolerated the procedure well, transferred to Recovery in good condition, where chest x-ray obtained. Job ID: [id number]
[2018-09-30] MEDS: Enoxaparin Sodium 40 MG/0.4 ML SYRINGE SC SCH (09:38)
[2018-09-30] MEDS: Famotidine/PF 20 mg/2ml Vial SLOW IVP SCH (09:38)
[2018-09-30] MEDS: PARoxetine CR 12.5 MG TAB PO SCH (09:38)
--- NOTE | 2018-09-30 10:15 | PRG ---
DATE OF SERVICE: 09/30/2018 SUBJECTIVE: The patient feels better. Minimal pain. No nausea or vomiting. She is hungry. OBJECTIVE: VITAL SIGNS: Temperature 97.9, pulse 89, blood pressure 111/71. GENERAL: She looks good. She is up in a chair. ABDOMEN: Soft, less distended. She is passing gas out of her colostomy. Colostomy looks healthy. ASSESSMENT: Doing well. PLAN: Begin clear liquids. Ambulate. Discontinue Mak. Job ID: [id number]
--- NOTE | 2018-09-30 17:14 | PRG ---
DATE OF SERVICE: 09/30/2018 SUBJECTIVE: Ms. Lopez is doing better today. She is postop day 1 from resection of sigmoid colon which was indurated and firm. She is voiding. She has been up walking. She has no nausea or vomiting. She is having gas coming to her ostomy bag. Her pain is controlled. MEDICATIONS: 1. Pepcid. 2. Lovenox. 3. Levaquin. 4. Flagyl. 5. P.r.n. morphine. 6. Zofran. 7. Toradol. OBJECTIVE: VITAL SIGNS: Temperature 98, pulse 96, blood pressure 97/62. LUNGS: Clear. HEART: Regular rate and rhythm without clicks or murmur. ABDOMEN: Soft and nontender. LABORATORY DATA: White count 7.7, hemoglobin 10.6, platelet count 306. Sodium 139, potassium 4.9, BUN and creatinine are 16 and 0.99. Pathology is pending. ASSESSMENT AND PLAN: 1. Colon obstruction secondary to inflammatory mass of sigmoid colon. This seems to be more chronic than acute, although she did have some improvement of symptoms with antibiotics and IV hydration when she was admitted, she is now status post resection with ostomy with plans to wait for pathology. If she does well postoperatively, we will hopefully take that ostomy down in 4 to 6 weeks depending on recommendations from General Surgery. 2. She does continue on antibiotics. We would defer to General Surgery, whether they think she needs to continue this or not. 3. We have encouraged her to get up, keep walking. We will leave diet to General Surgery, and we will follow along with you during this hospitalization. Job ID: [id number]
--- NOTE | 2018-09-30 18:31 | PDOC.PN ---
- Subjective Encounter Start Date: 09/30/18 Encounter Start Time: 18:29 Ms. Lopez was seen today in follow-up of bowel obstruction. She is feeling better today. Much less pain. She has been started on a clear liquid diet. - Objective Resuscitation Status - Order Detail: 09/27/18 21:41 Resuscitation Status Routine Co-Sign Provider: Resuscitation Status: DNAR: NO Resuscitation Discussed with: patient Additional comments: Jennie discussed with patient, in H&P MAR Reviewed: Yes Vital Signs & Weight: Vital Signs (12 hours) Temp Pulse Resp BP Pulse Ox 09/30/18 15:15 98.5 F 96 16 97/62 93 L 09/30/18 11:28 98 F 89 12 115/71 96 09/30/18 09:37 86 111/71 09/30/18 07:40 97.9 F 89 12 105/59 L 92 L Weight Admit Weight 183 lb 8 oz Weight 183 lb 8 oz I&O: 09/29/18 09/30/18 10/01/18 06:59 06:59 06:59 Intake Total 2635 2910 Output Total 475 300 Balance 2635 2435 -300 Result Diagrams: 09/30/18 04:10 09/30/18 04:10 Phys Exam - Physical Examination HEENT: PERRLA Respiratory: no wheezing, no rales, no rhonchi, clear to auscultation bilateral Cardiovascular: RRR, no significant murmur, no rub Gastrointestinal: soft, non-tender, no distention, positive bowel sounds Musculoskeletal: no edema, pulses present Dx/Plan (1) Partial bowel obstruction Code(s): K56.600 - PARTIAL INTESTINAL OBSTRUCTION, UNSPECIFIED TO CAUSE Status: Acute (2) Hypertension Code(s): I10 - ESSENTIAL (PRIMARY) HYPERTENSION Status: Chronic (3) Hypothyroidism Code(s): E03.9 - HYPOTHYROIDISM, UNSPECIFIED Status: Chronic - Plan * Bowel Obstruction from Diverticular Disease- she is s/p resection, and lysis of adhesions- clinically stable * HTN- blood pressure is stable. Agree with re-starting her home medications in the AM * Hypothyroidism- re-start Levothyroxine * Advance diet as per Surgery
[2018-10-01] MEDS: Ketorolac Tromethamine 30 MG/ML VIAL IVP SCH ×5 (00:45→22:48)
[2018-10-01] MEDS: metroNIDAZOLE 500 MG in Premix Bag 1 BAG IVPB SCH ×3 (01:01→17:32)
[2018-10-01] MEDS: Ondansetron PF 4 MG/2 ML Vial IVP PRN ×2 (03:36→09:14)
[2018-10-01] MEDS: Sodium Chloride 0.9% 1,000 ML IV SCH ×3 (06:07→15:47)
[2018-10-01] MEDS: Levothyroxine Sodium 88 MCG TAB PO SCH (06:23)
[2018-10-01] MEDS ORDERED: Famotidine 20 MG TAB PO SCH (09:00)
[2018-10-01] MEDS ORDERED: Torsemide 20 MG TAB PO SCH (09:00)
[2018-10-01] MEDS ORDERED: Rosuvastatin 10 MG TAB PO SCH (09:00)
[2018-10-01] MEDS ORDERED: Polyethylene Glycol 3350 17 GM Packet PO SCH (09:00)
[2018-10-01] MEDS: Famotidine/PF 20 mg/2ml Vial SLOW IVP SCH (09:14)
[2018-10-01] MEDS: PARoxetine CR 12.5 MG TAB PO SCH (09:15)
[2018-10-01] MEDS: Enoxaparin Sodium 40 MG/0.4 ML SYRINGE SC SCH (11:33)
[2018-10-01 13:52] LABS: INR-International Normal Ratio 1.3; PTT 38.1 SEC (22.9-36.1); Prothrombin Time 16.7 SEC (12.0-14.7)
[2018-10-01 14:07] LABS: ALT (SGPT) 12 U/L (8-55); AST (SGOT) 18 U/L (5-34); Albumin 2.7 g/dL (3.4-4.8); Alkaline Phosphatase 39 U/L (40-150); Anion Gap 14 mmol/L (10-20); BUN (Urea Nitrogen) 12 mg/dL (9.8-20.1); Bilirubin, Total 0.2 mg/dL (0.2-1.2); Calc. Creatinine Clearance 67 mL/min (70-130); Calcium 8.3 mg/dL (7.8-10.44); Carbon Dioxide 23 mmol/L (23-31); Cardiac Risk 2.1 (Less than 4.5); Chloride 108 mmol/L (98-107); Cholesterol 73 mg/dl (< 200 Desired); Estimated GFR-MDRD 58; Globulin 2.5 g/dL (2.4-3.5); Glucose 116 mg/dL (83-110); HDL Cholesterol 35 mg/dL (>60 Neg Risk); LDL Cholesterol, Calculated 30 mg/dL; Phosphorus 2.2 mg/dL (2.3-4.7); Potassium 3.8 mmol/L (3.5-5.1); Protein, Total 5.2 g/dL (6.0-8.3); Sodium 141 mmol/L (136-145); Triglycerides 42 mg/dL (Less than 150)
[2018-10-01] MEDS ORDERED: Sodium Chloride 0.9% 1,000 ML IV SCH (14:25)
--- NOTE | 2018-10-01 14:31 | PDOC.PN ---
- Subjective Encounter Start Date: 10/01/18 Encounter Start Time: 14:29 Patient seen and examined. No new complaints. No overnight events. feeling better. on liquid diet. No n/v. pain controlled. - Objective Resuscitation Status - Order Detail: 09/27/18 21:41 Resuscitation Status Routine Co-Sign Provider: Resuscitation Status: DNAR: NO Resuscitation Discussed with: patient Additional comments: Jennie discussed with patient, in H&P Vital Signs & Weight: Vital Signs (12 hours) Temp Pulse Resp BP Pulse Ox 10/01/18 12:18 97.4 F L 116 H 15 119/75 93 L 10/01/18 08:33 98.1 F 85 16 150/84 H 93 L 10/01/18 04:00 98 F 98 20 134/77 92 L Weight Admit Weight 183 lb 8 oz Weight 183 lb 8 oz I&O: 09/30/18 10/01/18 10/02/18 06:59 06:59 06:59 Intake Total 2910 3820 Output Total 475 1135 Balance 2435 2685 Result Diagrams: 09/30/18 04:10 10/01/18 13:33 Phys Exam - Physical Examination Constitutional: NAD HEENT: sclera anicteric Neck: supple Respiratory: no wheezing, no rales Cardiovascular: RRR Gastrointestinal: soft Musculoskeletal: no edema Neurological: non-focal, moves all 4 limbs Psychiatric: normal affect, A&O x 3 Skin: no rash Dx/Plan (1) Abdominal distention Code(s): R14.0 - ABDOMINAL DISTENSION (GASEOUS) Status: Resolved (2) Partial bowel obstruction Code(s): K56.600 - PARTIAL INTESTINAL OBSTRUCTION, UNSPECIFIED TO CAUSE Status: Resolved (3) Hypercholesterolemia Code(s): E78.00 - PURE HYPERCHOLESTEROLEMIA, UNSPECIFIED Status: Chronic (4) Hypertension Code(s): I10 - ESSENTIAL (PRIMARY) HYPERTENSION Status: Chronic (5) Hypothyroidism Code(s): E03.9 - HYPOTHYROIDISM, UNSPECIFIED Status: Chronic - Plan cont current plan of care, continue antibiotics, DVT proph w/lovenox * . will reduce IV fluids Advance diet per surgery. AM labs. BP and BS controlled.
--- NOTE | 2018-10-01 15:32 | EKG ---
Test Reason : Blood Pressure : / mmHG Vent. Rate : 111 BPM Atrial Rate : 111 BPM P-R Int : 146 ms QRS Dur : 128 ms QT Int : 356 ms P-R-T Axes : 039 024 -02 degrees QTc Int : 484 ms Sinus tachycardia Right bundle branch block Confirmed by PRESTON NDIAYE ([id number]), assistant editor YVAN CÁRDENAS ([id number]) on 10/01/2018 3:31:51 PM Referred By: Confirmed By:PRESTON NDIAYE
--- NOTE | 2018-10-01 16:36 | PRG ---
DATE OF SERVICE: 10/01/2018 SUBJECTIVE: Ms. Lopez had distention last night. The nurse reports she had an NG tube placed. She had a couple of liters out through the NG tube. She has had 500 mL out through her ostomy. However, the patient states she feels much better. She denies any abdominal pain. MEDICATIONS: 1. Lovenox. 2. Pepcid. 3. Toradol p.r.n. 4. Levothyroxine. 5. Metronidazole. 6. P.r.n. morphine. 7. Multivitamin. 8. She has been started some TPN. 9. Zofran. 10. Polyethylene glycol. 11. Rosuvastatin. PHYSICAL EXAMINATION: VITAL SIGNS: temperature 97, blood pressure 119/75. She is a little bit pale. She states she feels better than yesterday, but she looks a little bit worn out. She is in no distress. LUNGS: Clear. HEART: Regular rate and rhythm without clicks or murmurs. ABDOMEN: Soft and slightly protuberant, but not tense. Bowel sounds are quiescent. Ostomy looks good. There was formed stool coming out of it. LABORATORY DATA: No blood work today except for prealbumin of 7. ASSESSMENT: 1. Colonic obstruction from severe diverticular disease. Pathology still pending. 2. Episode of distention, likely ileus related, now better with NG tube. 3. Poor p.o. intake for several months and minimal for the last couple of weeks, she has been started on TPN by General Surgery. RECOMMENDATIONS: 1. Agree with plan for TPN. 2. Agree with labs for tomorrow. We will follow along with you. Job ID: [id number]
[2018-10-01] MEDS: Multivitamins, Adult 10 ML, Multitrace-5 5 ML in D15W-AA 5% with Lytes 2,000 ML, Fat Em... IV SCH (22:35)
[2018-10-02] MEDS: metroNIDAZOLE 500 MG in Premix Bag 1 BAG IVPB SCH ×3 (01:30→18:12)
[2018-10-02] MEDS: Sodium Chloride 0.9% 1,000 ML IV SCH ×2 (03:34→22:39)
[2018-10-02] MEDS: Ketorolac Tromethamine 30 MG/ML VIAL IVP SCH ×2 (06:25→11:51)
[2018-10-02] MEDS: Levothyroxine Sodium 88 MCG TAB PO SCH (06:25)
[2018-10-02 06:58] LABS: INR-International Normal Ratio 1.2; PTT 31.3 SEC (22.9-36.1); Prothrombin Time 15.6 SEC (12.0-14.7)
[2018-10-02 07:02] LABS: #Eosinphils 0.2 thou/uL (0.0-0.7); #Lymphocytes 1.5 thou/uL (1.20-3.40); #Monocytes 0.6 thou/uL (0.11-0.59); #Neutrophils 6.2 thou/uL (1.40-6.50); %Basophils 0.3 % (0.0-1.0); %Eosinophils 2.2 % (0.0-10.0); %Lymphocytes 17.5 % (21.0-51.0); %Monocytes 7.5 % (0.0-10.0); %Neutrophils 72.5 % (42.0-75.0); Hemoglobin 10.4 g/dL (12.0-16.0); Mean Corpuscular HGB CONC 33.4 g/dL (32.0-36.0); Mean Platelet Volume 7.1 fL (7.4-10.4); Platelet Count 320 thou/uL (130-400); RBC Distribution Width 11.2 % (11.5-14.5); Red Blood Cell (RBC) Count 3.05 mill/uL (4.20-5.40); White Blood Cell (WBC) Count 8.5 thou/uL (4.8-10.8)
[2018-10-02 07:12] LABS: Phosphorus 2.4 mg/dL (2.3-4.7)
[2018-10-02 07:17] LABS: ALT (SGPT) 7 U/L (8-55); AST (SGOT) 17 U/L (5-34); Albumin 2.4 g/dL (3.4-4.8); Alkaline Phosphatase 40 U/L (40-150); Anion Gap 9 mmol/L (10-20); BUN (Urea Nitrogen) 13 mg/dL (9.8-20.1); Bilirubin, Total 0.2 mg/dL (0.2-1.2); Calc. Creatinine Clearance 70 mL/min (70-130); Calcium 8.2 mg/dL (7.8-10.44); Carbon Dioxide 27 mmol/L (23-31); Cardiac Risk 2.5 (Less than 4.5); Chloride 109 mmol/L (98-107); Cholesterol 68 mg/dl (< 200 Desired); Estimated GFR-MDRD 62; Globulin 2.3 g/dL (2.4-3.5); Glucose 106 mg/dL (83-110); HDL Cholesterol 27 mg/dL (>60 Neg Risk); LDL Cholesterol, Calculated 29 mg/dL; Magnesium 1.2 mg/dL (1.6-2.6); Potassium 3.6 mmol/L (3.5-5.1); Protein, Total 4.7 g/dL (6.0-8.3); Sodium 141 mmol/L (136-145); Triglycerides 58 mg/dL (Less than 150)
--- NOTE | 2018-10-02 08:25 | RAD ---
EXAM: XR Abdomen 1 View/KUB PROVIDED CLINICAL HISTORY: History of bowel obstruction and vomiting COMPARISON: 09/26/2018 FINDINGS: Enteric catheter is noted, the tip of which projects in the left upper quadrant. Multiple loops of pr ominently gaseously dilated small bowel are noted with inconspicuous colon gas. The supine nature of the examination is not sensitive for detection of pneumoperitoneum. Midline laparotomy jakob ove rlie the lower abdomen. IMPRESSION: Multiple gas-filled dilated loops of small bowel, which may reflect ileus or obstruction.
[2018-10-02] MEDS ORDERED: Famotidine 20 MG TAB PO SCH (09:00)
[2018-10-02] MEDS: PARoxetine CR 12.5 MG TAB PO SCH (09:39)
[2018-10-02] MEDS: Rosuvastatin 10 MG TAB PO SCH (09:40)
[2018-10-02] MEDS: Famotidine/PF 20 mg/2ml Vial SLOW IVP SCH (09:40)
[2018-10-02] MEDS: Polyethylene Glycol 3350 17 GM Packet PO SCH (10:25)
[2018-10-02] MEDS: Enoxaparin Sodium 40 MG/0.4 ML SYRINGE SC SCH (10:57)
--- NOTE | 2018-10-02 11:58 | PRG ---
DATE OF SERVICE: 10/02/2018 SUBJECTIVE: The patient feels much better after placement of NG tube. They were able to remove almost 1600 mL of fluid from her abdomen through the NG tube. Ostomy is working. No nausea or vomiting. Pain is minimal. OBJECTIVE: GENERAL: On examination, she looks good. VITAL SIGNS: Her temperature is 98.4, pulse 90, blood pressure 122/70. ABDOMEN: Much less distended, soft, nontender. Ostomy is working well. Midline wound looks fine. ASSESSMENT: Doing well. PLAN: Continue NG suction with TPN. Hopefully, can get the NG tube out tomorrow. Job ID: [id number]
--- NOTE | 2018-10-02 12:36 | PDOC.PN ---
- Subjective Encounter Start Date: 10/02/18 Encounter Start Time: 12:35 Patient seen and examined. No new complaints. No overnight events. feeling good. No N/V reported. - Objective Resuscitation Status - Order Detail: 09/27/18 21:41 Resuscitation Status Routine Co-Sign Provider: Resuscitation Status: DNAR: NO Resuscitation Discussed with: patient Additional comments: Jennie discussed with patient, in H&P MAR Reviewed: Yes Vital Signs & Weight: Vital Signs (12 hours) Temp Pulse Resp BP Pulse Ox 10/02/18 11:42 97.7 F 95 18 139/84 94 L 10/02/18 08:05 98.4 F 90 15 122/77 95 10/02/18 04:23 98.0 F 95 20 135/82 94 L Weight Admit Weight 183 lb 8 oz Weight 183 lb 8 oz I&O: 10/01/18 10/02/18 10/03/18 06:59 06:59 06:59 Intake Total 3820 2366 Output Total 1135 2450 Balance 2685 -84 Result Diagrams: 10/02/18 06:30 10/02/18 06:30 Additional Labs: Accuchecks 10/02/18 10/01/18 06:24 23:57 POC Glucose 87 127 H Phys Exam - Physical Examination Constitutional: NAD HEENT: sclera anicteric Neck: supple Respiratory: no wheezing, no rales Cardiovascular: RRR Gastrointestinal: soft Musculoskeletal: no edema Neurological: non-focal Psychiatric: normal affect, A&O x 3 Skin: no rash Dx/Plan (1) Abdominal distention Code(s): R14.0 - ABDOMINAL DISTENSION (GASEOUS) Status: Resolved (2) Partial bowel obstruction Code(s): K56.600 - PARTIAL INTESTINAL OBSTRUCTION, UNSPECIFIED TO CAUSE Status: Resolved (3) Hypercholesterolemia Code(s): E78.00 - PURE HYPERCHOLESTEROLEMIA, UNSPECIFIED Status: Chronic (4) Hypertension Code(s): I10 - ESSENTIAL (PRIMARY) HYPERTENSION Status: Chronic (5) Hypothyroidism Code(s): E03.9 - HYPOTHYROIDISM, UNSPECIFIED Status: Chronic - Plan cont current plan of care, continue antibiotics, PT/OT, geriatric social worker, DVT proph w/lovenox * . continue TPN on NG suction f/u with surgery and GI Monitor labs Blood sugar and BP controlled.
--- NOTE | 2018-10-02 15:58 | PRG ---
DATE OF SERVICE: 10/02/2018 SUBJECTIVE: Ms. Lopez is sleeping when I come into the room. The nurse reports she had 150 mL out at NG tube overnight. She is starting on some ice chips and sips of clear liquids. If she does well overnight tonight, General Surgery pulling the NG tube. OBJECTIVE: VITAL SIGNS: Temperature is 97.9, pulse 75, and blood pressure 139/84. GENERAL: She is alert and oriented. ABDOMEN: Quiescent, soft, nontender. She has had about 150 out through her ostomy, and her ostomy is pink and dry. LABORATORY DATA: White count 8.5, hemoglobin 10.4, and platelet count 320. INR 1.2. Sodium 141, potassium 3.6, BUN and creatinine are 13 and 0.8. Protein is 4.7, albumin 2.4. Liver function tests normal. Magnesium is 1.2. ASSESSMENT: 1. Inflammatory mass of the sigmoid colon with obstruction, status post resection and colostomy. 2. Malnutrition with poor p.o. intake for several weeks before admission, on TPN. PLAN: 1. Continue TPN and adjustment of electrolytes as needed. NG tube management per General Surgery. 2. Discontinue antibiotics when following up with General Surgery. Await pathology. Job ID: [id number]
[2018-10-02] MEDS: Multivitamins, Adult 10 ML, Multitrace-5 5 ML in D15W-AA 5% with Lytes 2,000 ML, Fat Em... IV SCH (22:38)
[2018-10-03] MEDS: metroNIDAZOLE 500 MG in Premix Bag 1 BAG IVPB SCH ×3 (03:28→17:22)
[2018-10-03] MEDS: Levothyroxine Sodium 88 MCG TAB PO SCH (05:04)
[2018-10-03 06:41] LABS: INR-International Normal Ratio 1.1; PTT 31.4 SEC (22.9-36.1); Prothrombin Time 14.7 SEC (12.0-14.7)
[2018-10-03 07:01] LABS: ALT (SGPT) Less than 7 U/L (8-55); AST (SGOT) 12 U/L (5-34); Albumin 2.4 g/dL (3.4-4.8); Alkaline Phosphatase 38 U/L (40-150); Anion Gap 9 mmol/L (10-20); BUN (Urea Nitrogen) 16 mg/dL (9.8-20.1); Bilirubin, Total 0.2 mg/dL (0.2-1.2); Calc. Creatinine Clearance 80 mL/min (70-130); Calcium 8.4 mg/dL (7.8-10.44); Carbon Dioxide 28 mmol/L (23-31); Cardiac Risk 2.8 (Less than 4.5); Chloride 108 mmol/L (98-107); Cholesterol 67 mg/dl (< 200 Desired); Estimated GFR-MDRD 73; Globulin 2.4 g/dL (2.4-3.5); Glucose 118 mg/dL (83-110); HDL Cholesterol 24 mg/dL (>60 Neg Risk); LDL Cholesterol, Calculated 29 mg/dL; Magnesium 1.3 mg/dL (1.6-2.6); Phosphorus 2.9 mg/dL (2.3-4.7); Potassium 3.5 mmol/L (3.5-5.1); Protein, Total 4.8 g/dL (6.0-8.3); Sodium 141 mmol/L (136-145); Triglycerides 68 mg/dL (Less than 150)
[2018-10-03] MEDS: Famotidine 20 MG TAB PO SCH ×2 (08:45→20:07)
[2018-10-03] MEDS: Rosuvastatin 10 MG TAB PO SCH (08:45)
[2018-10-03] MEDS: PARoxetine CR 12.5 MG TAB PO SCH (08:45)
[2018-10-03] MEDS: Polyethylene Glycol 3350 17 GM Packet PO SCH (08:46)
[2018-10-03] MEDS: Enoxaparin Sodium 40 MG/0.4 ML SYRINGE SC SCH (08:46)
[2018-10-03] MEDS: Famotidine/PF 20 mg/2ml Vial SLOW IVP SCH ×2 (08:52→20:08)
--- NOTE | 2018-10-03 08:58 | PRG ---
DATE OF SERVICE: 10/01/2018 SUBJECTIVE: The patient has developed nausea and vomiting despite Zofran and antiemetics. Her abdomen is very distended. OBJECTIVE: VITAL SIGNS: Her temperature is 98, pulse is 85, and blood pressure is 150/84. ABDOMEN: She is still putting out some stool and gas from her ostomy. LABORATORY DATA: Her electrolytes were okay. PLAN: NG tube, bowel rest, and TPN. Job ID: [id number]
--- NOTE | 2018-10-03 09:24 | PRG ---
DATE OF SERVICE: 10/03/2018 SUBJECTIVE: The patient is feeling better today. She did not have any abdominal pain. No nausea or vomiting. She has had only 75 out her NG over the last 12 hours. Her ostomy is working well. OBJECTIVE: VITAL SIGNS: Her temperature is 97.9, pulse 98, blood pressure 163/81. GENERAL: She looks good. ABDOMEN: Much less distended. The ostomy is healthy and there is stool in the bag. LABORATORY DATA: Her laboratory was fine. ASSESSMENT: Doing well. PLAN: Discontinue NG, but we will keep her at bowel rest other than sips and chips. Job ID: [id number]
--- NOTE | 2018-10-03 09:57 | PDOC.PN ---
- Subjective Encounter Start Date: 10/03/18 Encounter Start Time: 12:30 Subjective: Patient feeling a bit better. Getting up with assistance though somewhat -: unsteady during transfers, better once gets up and moving. No N/V. - Objective Resuscitation Status - Order Detail: 09/27/18 21:41 Resuscitation Status Routine Co-Sign Provider: Resuscitation Status: DNAR: NO Resuscitation Discussed with: patient Additional comments: Jennie discussed with patient, in H&P MAR Reviewed: Yes Vital Signs & Weight: Vital Signs (12 hours) Temp Pulse Resp BP Pulse Ox 10/03/18 07:15 97.9 F 98 16 163/81 H 95 10/03/18 04:50 98.2 F 86 16 156/88 H 96 10/03/18 00:00 98.2 F 93 16 138/83 96 Weight Admit Weight 183 lb 8 oz Weight 183 lb 8 oz I&O: 10/02/18 10/03/18 10/04/18 06:59 06:59 06:59 Intake Total 2366 1982.5 1766 Output Total 2450 825 675 Balance -84 1157.5 1091 Result Diagrams: 10/02/18 06:30 10/03/18 06:20 Additional Labs: Accuchecks 10/03/18 10/02/18 10/02/18 05:40 23:45 18:13 POC Glucose 137 H 151 H 148 H Phys Exam - Physical Examination Constitutional: NAD HEENT: moist MMs Respiratory: no wheezing, no rales, no rhonchi Cardiovascular: RRR, no significant murmur Gastrointestinal: soft, no distention, positive bowel sounds ostomy in place Neurological: non-focal, moves all 4 limbs Psychiatric: normal affect, A&O x 3 Dx/Plan (1) Bowel obstruction Code(s): K56.609 - UNSP INTESTNL OBST, UNSP TO PARTIAL VERSUS COMPLETE OBST Status: Acute Comment: due to inflammatory mass of sigmoid colon, likely diverticular disease and stricture, s/p sigmoid resection and descending colostomy, NG tube out and ice chips, bowel rest (2) Hypercholesterolemia Code(s): E78.00 - PURE HYPERCHOLESTEROLEMIA, UNSPECIFIED Status: Chronic (3) Hypertension Code(s): I10 - ESSENTIAL (PRIMARY) HYPERTENSION Status: Chronic Comment: some elevations today (4) Hypothyroidism Code(s): E03.9 - HYPOTHYROIDISM, UNSPECIFIED Status: Chronic (5) GERD (gastroesophageal reflux disease) Code(s): K21.9 - GASTRO-ESOPHAGEAL REFLUX DISEASE WITHOUT ESOPHAGITIS Status: Chronic Comment: on Famotidine (6) Hypomagnesemia Code(s): E83.42 - HYPOMAGNESEMIA Status: Acute Comment: replacing - Plan cont current plan of care, continue antibiotics, out of bed/ambulate, DVT proph w/SCDs * . - Discharge Day Encounter end time: 12:40
[2018-10-03] MEDS ORDERED: Magnesium 2 GM/50 ML 2 GM in Premix Bag 1 BAG IVPB SCH (14:15)
--- NOTE | 2018-10-03 14:39 | PRG ---
DATE OF SERVICE: 10/03/2018 SUBJECTIVE: Ms. Lopez is feeling better. NG tube is out. She has had no fever or chills. OBJECTIVE: VITAL SIGNS: Temperature 98.1, pulse 96, and blood pressure 126/67. LUNGS: Clear. HEART: Regular rate and rhythm. ABDOMEN: Nontender. LABORATORY DATA: Glucose 172 today. ASSESSMENT AND PLAN: 1. Status post sigmoid resection for large bowel obstructions felt to be benign. Pathology is pending. 2. Ileus, resolving. TPN for nutrition and diet advances to be tapered. We will continue to follow her daily. We will not put notes in the chart unless I can be of assistance to her care. Job ID: [id number]
[2018-10-03] MEDS: Sodium Chloride 0.9% 1,000 ML IV SCH (18:49)
[2018-10-03] MEDS: Multivitamins, Adult 10 ML, Multitrace-5 5 ML in D15W-AA 5% with Lytes 2,000 ML, Fat Em... IV SCH (21:10)
[2018-10-04] MEDS: metroNIDAZOLE 500 MG in Premix Bag 1 BAG IVPB SCH ×3 (01:32→18:06)
[2018-10-04] MEDS: Levothyroxine Sodium 88 MCG TAB PO SCH (06:48)
[2018-10-04 07:00] LABS: INR-International Normal Ratio 1.1; PTT 30.2 SEC (22.9-36.1)
[2018-10-04 07:29] LABS: ALT (SGPT) 9 U/L (8-55); AST (SGOT) 14 U/L (5-34); Albumin 2.7 g/dL (3.4-4.8); Alkaline Phosphatase 37 U/L (40-150); Anion Gap 10 mmol/L (10-20); BUN (Urea Nitrogen) 14 mg/dL (9.8-20.1); Bilirubin, Total 0.3 mg/dL (0.2-1.2); Calc. Creatinine Clearance 94 mL/min (70-130); Calcium 8.4 mg/dL (7.8-10.44); Carbon Dioxide 26 mmol/L (23-31); Cardiac Risk 3.1 (Less than 4.5); Chloride 106 mmol/L (98-107); Cholesterol 72 mg/dl (< 200 Desired); Estimated GFR-MDRD 87; Globulin 2.7 g/dL (2.4-3.5); Glucose 121 mg/dL (83-110); HDL Cholesterol 23 mg/dL (>60 Neg Risk); LDL Cholesterol, Calculated 33 mg/dL; Magnesium 1.7 mg/dL (1.6-2.6); Potassium 3.5 mmol/L (3.5-5.1); Protein, Total 5.4 g/dL (6.0-8.3); Sodium 138 mmol/L (136-145); Triglycerides 80 mg/dL (Less than 150)
--- NOTE | 2018-10-04 08:18 | PRG ---
DATE OF SERVICE: 10/04/2018 SUBJECTIVE: The patient says she feels pretty good today. She denies any nausea. Her pain is minimal. OBJECTIVE: VITAL SIGNS: Temperature is 98.6, pulse 96, blood pressure 141/83. GENERAL: She is awake, alert. ABDOMEN: Soft, but a little more distended than yesterday. Her ostomy is putting out some flatus as well as about 100 mL of stool. ASSESSMENT: Partial obstruction, resolving. PLAN: Continue TPN, very slow advancement of diet. Job ID: [id number]
[2018-10-04] MEDS: Famotidine/PF 20 mg/2ml Vial SLOW IVP SCH (09:00)
[2018-10-04] MEDS: Famotidine 20 MG TAB PO SCH ×2 (09:20→21:54)
[2018-10-04] MEDS: Rosuvastatin 10 MG TAB PO SCH (09:20)
[2018-10-04] MEDS: Polyethylene Glycol 3350 17 GM Packet PO SCH (09:21)
[2018-10-04] MEDS: Enoxaparin Sodium 40 MG/0.4 ML SYRINGE SC SCH (09:22)
[2018-10-04] MEDS: PARoxetine CR 12.5 MG TAB PO SCH (09:23)
--- NOTE | 2018-10-04 10:02 | PDOC.PN ---
- Subjective Encounter Start Date: 10/04/18 Encounter Start Time: 12:20 Subjective: Patient feeling a bit better. Still no appetite and only on ice chips -: at this time by mouth. No CP/SOB. No abdominal pain currently. - Objective Resuscitation Status - Order Detail: 09/27/18 21:41 Resuscitation Status Routine Co-Sign Provider: Resuscitation Status: DNAR: NO Resuscitation Discussed with: patient Additional comments: Jennie discussed with patient, in H&P MAR Reviewed: Yes Vital Signs & Weight: Vital Signs (12 hours) Temp Pulse Resp BP Pulse Ox 10/04/18 07:13 98.6 F 96 16 141/83 H 95 10/04/18 04:00 98.4 F 91 16 148/82 H 96 10/03/18 23:00 98.4 F 98 16 153/86 H 96 Weight Admit Weight 183 lb 8 oz Weight 183 lb 8 oz I&O: 10/03/18 10/04/18 10/05/18 06:59 06:59 06:59 Intake Total 1982.5 3594 2076 Output Total 825 1025 975 Balance 1157.5 2569 1101 Result Diagrams: 10/02/18 06:30 10/04/18 06:40 Additional Labs: Accuchecks 10/04/18 10/04/18 10/03/18 06:52 01:33 15:24 POC Glucose 130 H 151 H 179 H 10/03/18 11:10 POC Glucose 172 H Phys Exam - Physical Examination Constitutional: NAD HEENT: moist MMs Respiratory: no wheezing, no rales, no rhonchi Cardiovascular: RRR, no significant murmur Gastrointestinal: soft, positive bowel sounds ostomy in place LLQ with small black liquid stool and gas Neurological: non-focal, moves all 4 limbs Psychiatric: normal affect, A&O x 3 Dx/Plan (1) Bowel obstruction Code(s): K56.609 - UNSP INTESTNL OBST, UNSP TO PARTIAL VERSUS COMPLETE OBST Status: Acute Comment: due to inflammatory mass of sigmoid colon, likely diverticular disease and stricture, s/p sigmoid resection and descending colostomy, NG tube out and ice chips, bowel rest (2) Hypercholesterolemia Code(s): E78.00 - PURE HYPERCHOLESTEROLEMIA, UNSPECIFIED Status: Chronic (3) Hypertension Code(s): I10 - ESSENTIAL (PRIMARY) HYPERTENSION Status: Chronic Comment: decent control (4) Hypothyroidism Code(s): E03.9 - HYPOTHYROIDISM, UNSPECIFIED Status: Chronic (5) GERD (gastroesophageal reflux disease) Code(s): K21.9 - GASTRO-ESOPHAGEAL REFLUX DISEASE WITHOUT ESOPHAGITIS Status: Chronic Comment: on Famotidine (6) Hypomagnesemia Code(s): E83.42 - HYPOMAGNESEMIA Status: Resolved Comment: replacing - Plan cont current plan of care, continue antibiotics, out of bed/ambulate, DVT proph w/lovenox, DVT proph w/SCDs * . - Discharge Day Encounter end time: 12:30
[2018-10-04] MEDS: Sodium Chloride 0.9% 1,000 ML IV SCH ×2 (19:14→22:00)
[2018-10-04] MEDS: Multivitamins, Adult 10 ML, Multitrace-5 5 ML in D15W-AA 5% with Lytes 2,000 ML, Fat Em... IV SCH (21:53)
[2018-10-05] MEDS: Famotidine/PF 20 mg/2ml Vial SLOW IVP SCH ×3 (04:41→19:50)
[2018-10-05 06:34] LABS: #Eosinphils 0.4 thou/uL (0.0-0.7); #Lymphocytes 1.7 thou/uL (1.20-3.40); #Monocytes 1.2 thou/uL (0.11-0.59); #Neutrophils 7.3 thou/uL (1.40-6.50); %Basophils 0.3 % (0.0-1.0); %Eosinophils 3.5 % (0.0-10.0); %Lymphocytes 15.8 % (21.0-51.0); %Monocytes 11.5 % (0.0-10.0); Hemoglobin 11.1 g/dL (12.0-16.0); Mean Corpuscular HGB CONC 32.5 g/dL (32.0-36.0); Mean Platelet Volume 6.2 fL (7.4-10.4); Platelet Count 427 thou/uL (130-400); RBC Distribution Width 11.2 % (11.5-14.5); Red Blood Cell (RBC) Count 3.35 mill/uL (4.20-5.40); White Blood Cell (WBC) Count 10.6 thou/uL (4.8-10.8)
[2018-10-05] MEDS: Levothyroxine Sodium 88 MCG TAB PO SCH (06:36)
[2018-10-05 06:39] LABS: INR-International Normal Ratio 1.1; PTT 29.8 SEC (22.9-36.1); Prothrombin Time 14.2 SEC (12.0-14.7)
[2018-10-05 07:10] LABS: ALT (SGPT) 8 U/L (8-55); AST (SGOT) 25 U/L (5-34); Albumin 2.5 g/dL (3.4-4.8); Alkaline Phosphatase 40 U/L (40-150); Anion Gap 7 mmol/L (10-20); BUN (Urea Nitrogen) 14 mg/dL (9.8-20.1); Bilirubin, Total 0.2 mg/dL (0.2-1.2); Calc. Creatinine Clearance 95 mL/min (70-130); Calcium 8.3 mg/dL (7.8-10.44); Carbon Dioxide 29 mmol/L (23-31); Cardiac Risk 3.3 (Less than 4.5); Chloride 105 mmol/L (98-107); Cholesterol 65 mg/dl (< 200 Desired); Estimated GFR-MDRD 88; Globulin 2.4 g/dL (2.4-3.5); Glucose 115 mg/dL (83-110); HDL Cholesterol 20 mg/dL (>60 Neg Risk); LDL Cholesterol, Calculated 31 mg/dL; Magnesium 1.7 mg/dL (1.6-2.6); Phosphorus 3.1 mg/dL (2.3-4.7); Potassium 3.6 mmol/L (3.5-5.1); Protein, Total 4.9 g/dL (6.0-8.3); Sodium 137 mmol/L (136-145); Triglycerides 72 mg/dL (Less than 150)
[2018-10-05] MEDS: Famotidine 20 MG TAB PO SCH ×2 (08:51→19:49)
[2018-10-05] MEDS: Polyethylene Glycol 3350 17 GM Packet PO SCH (08:52)
[2018-10-05] MEDS: Rosuvastatin 10 MG TAB PO SCH (08:52)
--- NOTE | 2018-10-05 09:24 | PDOC.PN ---
- Subjective Encounter Start Date: 10/05/18 Encounter Start Time: 15:55 Subjective: Patient sleeping comfortably. No events overnight. No complaints. - Objective Resuscitation Status - Order Detail: 09/27/18 21:41 Resuscitation Status Routine Co-Sign Provider: Resuscitation Status: DNAR: NO Resuscitation Discussed with: patient Additional comments: Jennie discussed with patient, in H&P MAR Reviewed: Yes Vital Signs & Weight: Vital Signs (12 hours) Temp Pulse Resp BP Pulse Ox 10/05/18 07:50 97.8 F 98 20 131/81 96 10/05/18 05:16 98.1 F 98 20 138/83 96 10/05/18 00:00 98.3 F 92 20 142/83 H 96 Weight Admit Weight 183 lb 8 oz Weight 183 lb 8 oz I&O: 10/04/18 10/05/18 10/06/18 06:59 06:59 06:59 Intake Total 3594 3804 1816 Output Total 1025 1800 1375 Balance 2569 2004 441 Result Diagrams: 10/05/18 06:25 10/05/18 06:25 Additional Labs: Accuchecks 10/05/18 10/05/18 10/04/18 06:05 00:44 15:29 POC Glucose 123 H 149 H 140 H 10/04/18 11:30 POC Glucose 160 H Phys Exam - Physical Examination Constitutional: NAD HEENT: moist MMs Respiratory: no wheezing, no rales, no rhonchi snoring softly Cardiovascular: RRR ostomy in place Neurological: non-focal Deviation from normal: sleeping soundly Dx/Plan (1) Bowel obstruction Code(s): K56.609 - UNSP INTESTNL OBST, UNSP TO PARTIAL VERSUS COMPLETE OBST Status: Acute Comment: due to inflammatory mass of sigmoid colon, likely diverticular disease and stricture, s/p sigmoid resection and descending colostomy, NG tube out and ice chips, bowel rest, antibiotics d/c'd 10/04/18 (2) Hypercholesterolemia Code(s): E78.00 - PURE HYPERCHOLESTEROLEMIA, UNSPECIFIED Status: Chronic (3) Hypertension Code(s): I10 - ESSENTIAL (PRIMARY) HYPERTENSION Status: Chronic Comment: decent control (4) Hypothyroidism Code(s): E03.9 - HYPOTHYROIDISM, UNSPECIFIED Status: Chronic (5) GERD (gastroesophageal reflux disease) Code(s): K21.9 - GASTRO-ESOPHAGEAL REFLUX DISEASE WITHOUT ESOPHAGITIS Status: Chronic Comment: on Famotidine (6) Hypomagnesemia Code(s): E83.42 - HYPOMAGNESEMIA Status: Resolved Comment: replacing - Plan cont current plan of care, out of bed/ambulate, DVT proph w/lovenox, DVT proph w /SCDs advancing diet * . - Discharge Day Encounter end time: 16:05
[2018-10-05] MEDS: Enoxaparin Sodium 40 MG/0.4 ML SYRINGE SC SCH (09:45)
[2018-10-05] MEDS: PARoxetine CR 12.5 MG TAB PO SCH (09:46)
--- NOTE | 2018-10-05 09:48 | PRG ---
DATE OF SERVICE: 10/05/2018 SUBJECTIVE: The patient says she feels okay. No pain. No nausea or vomiting. OBJECTIVE: On exam, she looks good. Her abdomen is slightly distended, but soft. No tenderness. Incisions okay. Ostomy is functioning. ASSESSMENT: Doing well. PLAN: Clear liquids. Job ID: [id number]
[2018-10-05] MEDS: Multivitamins, Adult 10 ML, Multitrace-5 5 ML in D15W-AA 5% with Lytes 2,000 ML, Fat Em... IV SCH (22:23)
[2018-10-05] MEDS: Sodium Chloride 0.9% 1,000 ML IV SCH (22:24)
[2018-10-06] MEDS: Ondansetron PF 4 MG/2 ML Vial IVP PRN ×2 (04:50→14:04)
[2018-10-06] MEDS: Levothyroxine Sodium 88 MCG TAB PO SCH (06:02)
[2018-10-06 06:27] LABS: ALT (SGPT) 10 U/L (8-55); AST (SGOT) 22 U/L (5-34); Albumin 2.7 g/dL (3.4-4.8); Alkaline Phosphatase 42 U/L (40-150); Anion Gap 8 mmol/L (10-20); BUN (Urea Nitrogen) 13 mg/dL (9.8-20.1); Bilirubin, Total 0.3 mg/dL (0.2-1.2); Calc. Creatinine Clearance 97 mL/min (70-130); Calcium 8.6 mg/dL (7.8-10.44); Carbon Dioxide 28 mmol/L (23-31); Cardiac Risk 3.9 (Less than 4.5); Chloride 104 mmol/L (98-107); Cholesterol 74 mg/dl (< 200 Desired); Estimated GFR-MDRD 90; Globulin 2.6 g/dL (2.4-3.5); Glucose 120 mg/dL (83-110); HDL Cholesterol 19 mg/dL (>60 Neg Risk); INR-International Normal Ratio 1.1; LDL Cholesterol, Calculated 38 mg/dL; Magnesium 1.7 mg/dL (1.6-2.6); PTT 29.6 SEC (22.9-36.1); Phosphorus 3.4 mg/dL (2.3-4.7); Potassium 3.9 mmol/L (3.5-5.1); Protein, Total 5.3 g/dL (6.0-8.3); Prothrombin Time 14.1 SEC (12.0-14.7); Sodium 136 mmol/L (136-145); Triglycerides 85 mg/dL (Less than 150)
[2018-10-06] MEDS: PARoxetine CR 12.5 MG TAB PO SCH (08:59)
[2018-10-06] MEDS: Famotidine/PF 20 mg/2ml Vial SLOW IVP SCH ×2 (09:00→20:05)
[2018-10-06] MEDS: Polyethylene Glycol 3350 17 GM Packet PO SCH (09:00)
[2018-10-06] MEDS: Famotidine 20 MG TAB PO SCH ×2 (09:00→20:05)
[2018-10-06] MEDS: Rosuvastatin 10 MG TAB PO SCH (09:00)
--- NOTE | 2018-10-06 09:17 | PRG ---
DATE OF SERVICE: 10/06/2018 SUBJECTIVE: She developed some vomiting this morning 350 mL, but she says she does not have any nausea. Her ostomy is working. She looks good. She does not look to be in any distress. OBJECTIVE: VITAL SIGNS: Temperature is 97.6, pulse 105, blood pressure 139/82. ABDOMEN: Soft. Decreased distention. The ostomy has air and stool in it. LABORATORY DATA: Her white count is only 10, H and H 11 and 34, platelet count was 427. Electrolytes were fine. ASSESSMENT: Still partial obstruction versus ileus. PLAN: Half a bottle of magnesium citrate. Job ID: [id number]
[2018-10-06] MEDS ORDERED: Magnesium Citrate 300 ML BOT PO SCH (10:00)
[2018-10-06] MEDS: Enoxaparin Sodium 40 MG/0.4 ML SYRINGE SC SCH (11:07)
--- NOTE | 2018-10-06 14:58 | RAD ---
XR Abdomen 1 View/KUB HISTORY:Abdominal distention. Ileus. COMPARISON: 10/02/2018 study. FINDINGS: The NG tube has been removed. The dilated small bowel loops persist, there is air present w ithin the colon. There appears to be a left-sided ostomy. These changes could represent an ileus but are suspicious for a partial small bowel obstruction. Surgical jakob over the midline in the pe lvis are present. IMPRESSION: Persistent small bowel distention as described above.
--- NOTE | 2018-10-06 15:48 | PRG ---
DATE OF SERVICE: 10/06/2018 SUBJECTIVE: Ms. Lopez is sitting in the chair. NG tube has been removed. She is starting liquid diet. OBJECTIVE: VITAL SIGNS: Temperature is 98, pulse 95, blood pressure 137/67. ABDOMEN: Soft and nontender. LABORATORY DATA: White count 10.7, hemoglobin 10.1, platelet count 427. INR 1.1. Sodium 137, potassium 3.6, BUN and creatinine are . Liver function tests normal. Albumin is 2.5. Pathology on the colon segment resection shows diverticulosis associated with acute serositis. No malignancy. ASSESSMENT: 1. Complicated diverticular disease with some high-grade subtotal obstruction status post resection. 2. Ileus, improving. Start to take p.o. fluids. She will be able to go home in the next day or two. Job ID: [id number]
--- NOTE | 2018-10-06 16:09 | PRG ---
DATE OF SERVICE: 10/04/2018 SUBJECTIVE: Ms. Lopez is doing well. Her NG tube was putting out less fluid. She still is having her ice chips. OBJECTIVE: VITAL SIGNS: Temperature pulse 98, blood pressure 155/87. Her NG drain is down to 75 mL. ABDOMEN: Soft and nontender. Bowel sounds pretty low. Starting to see some green bile out through the ostomy. ASSESSMENT: 1. Resection of sigmoid diverticulitis and fibrosis with high-grade partial obstruction. 2. Ileus, improving. RECOMMENDATIONS: We will discuss with Dr. De Luna about stopping the antibiotics. I will defer to Dr. De Luna in terms of advancement of diet. Job ID: [id number]
--- NOTE | 2018-10-06 17:07 | PRG ---
DATE OF SERVICE: 10/06/2018 SUBJECTIVE: Ms. Lopez had a little bit of vomiting today, just a small amount. Temperature is 98.3, pulse 93, and blood pressure 133/83. X-ray that was done ordered today by Dr. De Luna. It apparently shows some of the loops of small bowel. Reviewing those films, there is a significant distention of the small bowel. PHYSICAL EXAMINATION: GENERAL: She is really not all that distended. Bowel sounds are quiescent. Ostomy does have clear bile in it. LABORATORY DATA: No CBC today. Sodium is 137, potassium 3.9, BUN and creatinine 13 and 0.69. Albumin is 2.7. Electrolytes normal. ASSESSMENT: See if there is any ileus or obstruction, the small bowel is quite distended. She is ambulating. Electrolytes were good. She is on TPN for nutrition. Nurse informed me Dr. De Luna is to come up and examine her ostomy digitally and see if there are any signs of obstipation. She had really a lot of stool obstruction in the colon from her long-standing high-grade sigmoid obstruction. If that is unrevealing, may reasonably repeat a reason to repeat a CAT scan and see she has a lot of right-sided stool in her colon. Continue DVT prophylaxis, ambulation, and TPN for now. She is not really not on any narcotics, would consider something like Movantik, but I would not do that until where she has had a CAT scan and we are very sure that she does not have any obstruction. Job ID: [id number]
[2018-10-06] MEDS: Sodium Chloride 0.9% 1,000 ML IV SCH (20:04)
--- NOTE | 2018-10-06 20:48 | PDOC.PN ---
- Subjective Encounter Start Date: 10/06/18 Encounter Start Time: 10:00 Subjective: pt up in bed complains of mild pain to her abdomen area - Objective Resuscitation Status - Order Detail: 09/27/18 21:41 Resuscitation Status Routine Co-Sign Provider: Resuscitation Status: DNAR: NO Resuscitation Discussed with: patient Additional comments: Jennie discussed with patient, in H&P Vital Signs & Weight: Vital Signs (12 hours) Temp Pulse Resp BP Pulse Ox 10/06/18 20:00 98.8 F 97 20 128/67 97 10/06/18 15:14 97.9 F 97 18 140/58 L 96 10/06/18 11:26 98.3 F 93 16 133/83 96 Weight Admit Weight 183 lb 8 oz Weight 183 lb 8 oz I&O: 10/05/18 10/06/18 10/07/18 06:59 06:59 06:59 Intake Total 3804 5888 2048 Output Total 1800 2650 1450 Balance 2004 3238 598 Result Diagrams: 10/05/18 06:25 10/06/18 05:55 Additional Labs: Accuchecks 10/06/18 10/06/18 10/06/18 11:29 06:01 00:11 POC Glucose 130 H 142 H 143 H Phys Exam - Physical Examination Respiratory: no wheezing, no rales, no rhonchi, wheezing present, clear to auscultation bilateral Cardiovascular: RRR, no significant murmur, no rub, gallop, irregular Gastrointestinal: soft, positive bowel sounds mild pain around incision site. colostomy mild drainage Musculoskeletal: no edema, pulses present, edema present Dx/Plan (1) Bowel obstruction Code(s): K56.609 - UNSP INTESTNL OBST, UNSP TO PARTIAL VERSUS COMPLETE OBST Status: Acute Comment: due to inflammatory mass of sigmoid colon, likely diverticular disease and stricture, s/p sigmoid resection and descending colostomy, NG tube out and ice chips, bowel rest, antibiotics d/c'd 10/04/18 (2) GERD (gastroesophageal reflux disease) Code(s): K21.9 - GASTRO-ESOPHAGEAL REFLUX DISEASE WITHOUT ESOPHAGITIS Status: Chronic Comment: on Famotidine (3) Hypercholesterolemia Code(s): E78.00 - PURE HYPERCHOLESTEROLEMIA, UNSPECIFIED Status: Chronic (4) Hypertension Code(s): I10 - ESSENTIAL (PRIMARY) HYPERTENSION Status: Chronic Comment: decent control (5) Hypothyroidism Code(s): E03.9 - HYPOTHYROIDISM, UNSPECIFIED Status: Chronic - Plan -: pt ambulating, and feels well. No significant output. -: pt still on tpn. Diet to be advanced per surgeon * . Review of Systems - Review of Systems Cardiovascular: negative: chest pain, palpitations, orthopnea, paroxysmal nocturnal dyspnea, edema, light headedness, other Gastrointestinal: Abdominal Pain Genitourinary: negative: Dysuria, Frequency, Incontinence, Hematuria, Retention , Other - Medications/Allergies Allergies/Adverse Reactions: Allergies Allergy/AdvReac Type Severity Reaction Status Date / Time aspirin Allergy Severe Swollen Verified 09/26/18 23:46 Lips codeine Allergy Intermediate Rash Verified 09/26/18 23:46 Penicillins Allergy Verified 09/26/18 22:56 Medications: Current Medications Albuterol/Ipratropium (Duoneb) 3 ml NEB Q4H PRN PRN Reason: Wheezing Enoxaparin Sodium (Lovenox) 40 mg SC 0900 [facility] Last Admin: 10/06/18 11:07 Dose: 40 mg Famotidine (Pepcid) 20 mg PO BID [facility] Last Admin: 10/06/18 20:05 Dose: Not Given Famotidine (Pepcid) 20 mg SLOW IVP BID [facility] Last Admin: 10/06/18 20:05 Dose: 20 mg Hydralazine HCl (Apresoline) 10 mg SLOW IVP Q4H PRN PRN Reason: SBP > 170 or DBP > 100 Multivitamins 10 ml/ Chromium/Copper/Manganese/Seleni/Zn 5 ml/ Amino Acids/ Electrolytes/Fat Emulsion Intravenous 2,265 mls @ 94.375 mls/hr IV 2200 [facility] Last Admin: 10/05/18 22:23 Dose: 2,265 mls Sodium Chloride (Normal Saline 0.9%) 1,000 mls @ 50 mls/hr IV .Q20H [facility] Last Admin: 10/06/18 20:04 Dose: 1,000 mls Levothyroxine Sodium (Synthroid) 88 mcg PO 0600 [facility] Last Admin: 10/06/18 06:02 Dose: 88 mcg Morphine Sulfate (Morphine) 2 mg SLOW IVP Q2H PRN PRN Reason: Mild Pain (1-3) Morphine Sulfate (Morphine) 4 mg SLOW IVP Q2H PRN PRN Reason: Moderate Pain (4-6) Last Admin: 09/29/18 15:36 Dose: 4 mg Olmesartan (Benicar) 40 mg PO DAILY [facility] Last Admin: 10/06/18 09:00 Dose: 40 mg Ondansetron HCl (Zofran) 4 mg IVP Q6H PRN PRN Reason: Nausea/Vomiting Last Admin: 10/06/18 14:04 Dose: 4 mg Paroxetine HCl (Paxil Cr) 37.5 mg PO DAILY [facility] Last Admin: 10/06/18 08:59 Dose: 37.5 mg Polyethylene Glycol (Miralax) 17 gm PO DAILY [facility] Last Admin: 10/06/18 09:00 Dose: 17 gm Promethazine HCl (Phenergan) 12.5 mg IM Q4H PRN PRN Reason: Nausea/Vomiting Last Admin: 10/01/18 06:09 Dose: 12.5 mg Rosuvastatin Calcium (Crestor) 10 mg PO DAILY [facility] Last Admin: 10/06/18 09:00 Dose: 10 mg Sodium Chloride (Flush - Normal Saline) 10 ml IVF Q12HR [facility] Last Admin: 10/06/18 20:06 Dose: 10 ml Sodium Chloride (Flush - Normal Saline) 10 ml IVF PRN PRN PRN Reason: Saline Flush
[2018-10-06] MEDS: Multivitamins, Adult 10 ML, Multitrace-5 5 ML in D15W-AA 5% with Lytes 2,000 ML, Fat Em... IV SCH (22:14)
[2018-10-07 05:45] LABS: INR-International Normal Ratio 1.1; PTT 28.2 SEC (22.9-36.1); Prothrombin Time 13.9 SEC (12.0-14.7)
[2018-10-07 06:00] LABS: ALT (SGPT) 12 U/L (8-55); AST (SGOT) 17 U/L (5-34); Albumin 2.9 g/dL (3.4-4.8); Alkaline Phosphatase 44 U/L (40-150); Anion Gap 8 mmol/L (10-20); BUN (Urea Nitrogen) 14 mg/dL (9.8-20.1); Bilirubin, Total 0.2 mg/dL (0.2-1.2); Calc. Creatinine Clearance 95 mL/min (70-130); Calcium 9.1 mg/dL (7.8-10.44); Carbon Dioxide 30 mmol/L (23-31); Cardiac Risk 3.8 (Less than 4.5); Chloride 102 mmol/L (98-107); Cholesterol 88 mg/dl (< 200 Desired); Estimated GFR-MDRD 88; Glucose 108 mg/dL (83-110); HDL Cholesterol 23 mg/dL (>60 Neg Risk); LDL Cholesterol, Calculated 46 mg/dL; Magnesium 1.8 mg/dL (1.6-2.6); Phosphorus 3.4 mg/dL (2.3-4.7); Potassium 4.1 mmol/L (3.5-5.1); Protein, Total 5.9 g/dL (6.0-8.3); Sodium 136 mmol/L (136-145); Triglycerides 96 mg/dL (Less than 150)
[2018-10-07] MEDS: Levothyroxine Sodium 88 MCG TAB PO SCH (06:26)
[2018-10-07] MEDS: Famotidine/PF 20 mg/2ml Vial SLOW IVP SCH ×2 (09:14→21:08)
--- NOTE | 2018-10-07 10:21 | PRG ---
DATE OF SERVICE: 10/07/2018 SUBJECTIVE: The patient feels better since NG tube was placed. No nausea or vomiting. Pain is minimal. OBJECTIVE: VITAL SIGNS: Her temperature is 98.2, pulse 94, and blood pressure 137/82. ABDOMEN: Less distended. The ostomy is healthy. I digitalized the colostomy. There is some air and stool coming out. Her NG output was 500. PLAN: Today is Gastrografin small bowel follow-through. Continue TPN. Job ID: [id number]
[2018-10-07] MEDS ORDERED: MD-Gastroview 120 ML BOT ONE (10:47)
[2018-10-07] MEDS: Famotidine 20 MG TAB PO SCH ×2 (14:54→22:08)
[2018-10-07] MEDS: PARoxetine CR 12.5 MG TAB PO SCH (14:55)
[2018-10-07] MEDS: Polyethylene Glycol 3350 17 GM Packet PO SCH (14:55)
[2018-10-07] MEDS: Rosuvastatin 10 MG TAB PO SCH (14:55)
--- NOTE | 2018-10-07 15:17 | PDOC.PN ---
- Subjective Encounter Start Date: 10/07/18 Encounter Start Time: 11:45 Subjective: pt up in bed no complains - Objective Resuscitation Status - Order Detail: 09/27/18 21:41 Resuscitation Status Routine Co-Sign Provider: Resuscitation Status: DNAR: NO Resuscitation Discussed with: patient Additional comments: Jennie discussed with patient, in H&P Vital Signs & Weight: Vital Signs (12 hours) Temp Pulse Resp BP Pulse Ox 10/07/18 11:30 97.9 F 99 18 139/81 95 10/07/18 08:05 98.2 F 94 16 137/82 97 10/07/18 04:13 98 F 99 20 131/80 95 Weight Admit Weight 183 lb 8 oz Weight 183 lb 8 oz I&O: 10/06/18 10/07/18 10/08/18 06:59 06:59 06:59 Intake Total 5888 3632 Output Total 2650 2600 Balance 3238 1032 Result Diagrams: 10/05/18 06:25 10/07/18 05:15 Additional Labs: Accuchecks 10/07/18 10/07/18 10/06/18 11:29 05:21 23:37 POC Glucose 136 H 100 134 H Phys Exam - Physical Examination Neck: no nodes, no JVD, supple, full ROM Respiratory: no wheezing, no rales, no rhonchi, wheezing present, clear to auscultation bilateral Cardiovascular: RRR, no significant murmur, no rub, gallop, irregular Gastrointestinal: soft, non-tender, no distention, positive bowel sounds colostomy Musculoskeletal: no edema, pulses present, edema present Dx/Plan (1) Bowel obstruction Code(s): K56.609 - UNSP INTESTNL OBST, UNSP TO PARTIAL VERSUS COMPLETE OBST Status: Acute Comment: due to inflammatory mass of sigmoid colon, likely diverticular disease and stricture, s/p sigmoid resection and descending colostomy, NG tube out and ice chips, bowel rest, antibiotics d/c'd 10/04/18 (2) GERD (gastroesophageal reflux disease) Code(s): K21.9 - GASTRO-ESOPHAGEAL REFLUX DISEASE WITHOUT ESOPHAGITIS Status: Chronic Comment: on Famotidine (3) Hypercholesterolemia Code(s): E78.00 - PURE HYPERCHOLESTEROLEMIA, UNSPECIFIED Status: Chronic (4) Hypertension Code(s): I10 - ESSENTIAL (PRIMARY) HYPERTENSION Status: Chronic Comment: decent control (5) Hypothyroidism Code(s): E03.9 - HYPOTHYROIDISM, UNSPECIFIED Status: Chronic - Plan pt undergoing small bowel follow through. -: pt on tpn. -: encourage pt to ambulate * . Review of Systems - Review of Systems Cardiovascular: negative: chest pain, palpitations, orthopnea, paroxysmal nocturnal dyspnea, edema, light headedness, other Gastrointestinal: negative: Nausea, Vomiting, Abdominal Pain, Diarrhea, Constipation, Melena, Hematochezia, Other Genitourinary: negative: Dysuria, Frequency, Incontinence, Hematuria, Retention , Other - Medications/Allergies Allergies/Adverse Reactions: Allergies Allergy/AdvReac Type Severity Reaction Status Date / Time aspirin Allergy Severe Swollen Verified 09/26/18 23:46 Lips codeine Allergy Intermediate Rash Verified 09/26/18 23:46 Penicillins Allergy Verified 09/26/18 22:56 Medications: Current Medications Albuterol/Ipratropium (Duoneb) 3 ml NEB Q4H PRN PRN Reason: Wheezing Enoxaparin Sodium (Lovenox) 40 mg SC 0900 [facility] Last Admin: 10/06/18 11:07 Dose: 40 mg Famotidine (Pepcid) 20 mg PO BID [facility] Last Admin: 10/07/18 14:54 Dose: Not Given Famotidine (Pepcid) 20 mg SLOW IVP BID [facility] Last Admin: 10/07/18 09:14 Dose: 20 mg Hydralazine HCl (Apresoline) 10 mg SLOW IVP Q4H PRN PRN Reason: SBP > 170 or DBP > 100 Multivitamins 10 ml/ Chromium/Copper/Manganese/Seleni/Zn 5 ml/ Amino Acids/ Electrolytes/Fat Emulsion Intravenous 2,265 mls @ 94.375 mls/hr IV 2200 [facility] Last Admin: 10/06/18 22:14 Dose: 2,265 mls Sodium Chloride (Normal Saline 0.9%) 1,000 mls @ 50 mls/hr IV .Q20H [facility] Last Admin: 10/06/18 20:04 Dose: 1,000 mls Levothyroxine Sodium (Synthroid) 88 mcg PO 0600 [facility] Last Admin: 10/07/18 06:26 Dose: 88 mcg Morphine Sulfate (Morphine) 2 mg SLOW IVP Q2H PRN PRN Reason: Mild Pain (1-3) Morphine Sulfate (Morphine) 4 mg SLOW IVP Q2H PRN PRN Reason: Moderate Pain (4-6) Last Admin: 09/29/18 15:36 Dose: 4 mg Olmesartan (Benicar) 40 mg PO DAILY [facility] Last Admin: 10/07/18 14:54 Dose: Not Given Ondansetron HCl (Zofran) 4 mg IVP Q6H PRN PRN Reason: Nausea/Vomiting Last Admin: 10/06/18 14:04 Dose: 4 mg Paroxetine HCl (Paxil Cr) 37.5 mg PO DAILY [facility] Last Admin: 10/07/18 14:55 Dose: Not Given Polyethylene Glycol (Miralax) 17 gm PO DAILY [facility] Last Admin: 10/07/18 14:55 Dose: Not Given Promethazine HCl (Phenergan) 12.5 mg IM Q4H PRN PRN Reason: Nausea/Vomiting Last Admin: 10/01/18 06:09 Dose: 12.5 mg Rosuvastatin Calcium (Crestor) 10 mg PO DAILY [facility] Last Admin: 10/07/18 14:55 Dose: Not Given Sodium Chloride (Flush - Normal Saline) 10 ml IVF Q12HR [facility] Last Admin: 10/06/18 20:06 Dose: 10 ml Sodium Chloride (Flush - Normal Saline) 10 ml IVF PRN PRN PRN Reason: Saline Flush
[2018-10-07] MEDS: Enoxaparin Sodium 40 MG/0.4 ML SYRINGE SC SCH (16:08)
[2018-10-07] MEDS: Sodium Chloride 0.9% 1,000 ML IV SCH (16:11)
--- NOTE | 2018-10-07 19:36 | RAD ---
EXAM: XR Small Bowel STANDARD PROVIDED CLINICAL HISTORY: Small bowel dilatation. Ileus versus small bowel obstruction. COMPARISON: 10/06/2018 FINDINGS: Electrologist image demonstrates nasogastric tube now in place with tip overlying the left upper quadrant. Th ere is persistent dilatation and gaseous distention of multiple loops of small bowel. Skin clips again overlie the midline. Gas is present within the colon. There is small amount of retained fecal m aterial in the region of the rectum. Phleboliths overlie the pelvis. There is suggestion of a left lower quadrant ostomy. Gastrografin was administered via the nasogastric tube, and sequential imaging was obtained up to 8.5 hours. There is small bowel dilatation seen diffusely. No contrast is seen within the colon on the 8.5 hour image. IMPRESSION: Diffusely dilated loops of small bowel. No contrast is seen in the colon on the 8.5 hour image. Findi ngs suggestive of either a small bowel obstruction versus ileus. Follow-up AP abdominal radiograph on 10/08/2018 is suggested.
[2018-10-07] MEDS: Multivitamins, Adult 10 ML, Multitrace-5 5 ML in D15W-AA 5% with Lytes 2,000 ML, Fat Em... IV SCH (22:13)
[2018-10-08] MEDS: Levothyroxine Sodium 88 MCG TAB PO SCH (06:06)
[2018-10-08 06:07] LABS: INR-International Normal Ratio 1.1; Prothrombin Time 13.9 SEC (12.0-14.7)
[2018-10-08 06:08] LABS: PTT 36.2 SEC (22.9-36.1)
[2018-10-08 06:22] LABS: ALT (SGPT) 9 U/L (8-55); AST (SGOT) 18 U/L (5-34); Alkaline Phosphatase 48 U/L (40-150); Anion Gap 7 mmol/L (10-20); BUN (Urea Nitrogen) 16 mg/dL (9.8-20.1); Bilirubin, Total 0.2 mg/dL (0.2-1.2); Calc. Creatinine Clearance 92 mL/min (70-130); Calcium 9.4 mg/dL (7.8-10.44); Carbon Dioxide 33 mmol/L (23-31); Cardiac Risk 4.4 (Less than 4.5); Chloride 101 mmol/L (98-107); Cholesterol 105 mg/dl (< 200 Desired); Estimated GFR-MDRD 85; Globulin 2.9 g/dL (2.4-3.5); Glucose 110 mg/dL (83-110); HDL Cholesterol 24 mg/dL (>60 Neg Risk); LDL Cholesterol, Calculated 58 mg/dL; Magnesium 1.9 mg/dL (1.6-2.6); Phosphorus 4.3 mg/dL (2.3-4.7); Potassium 4.2 mmol/L (3.5-5.1); Protein, Total 5.9 g/dL (6.0-8.3); Sodium 137 mmol/L (136-145); Triglycerides 114 mg/dL (Less than 150)
[2018-10-08] MEDS: Famotidine 20 MG TAB PO SCH ×2 (08:56→20:57)
[2018-10-08] MEDS: PARoxetine CR 12.5 MG TAB PO SCH (09:06)
[2018-10-08] MEDS: Enoxaparin Sodium 40 MG/0.4 ML SYRINGE SC SCH (09:06)
[2018-10-08] MEDS: Famotidine/PF 20 mg/2ml Vial SLOW IVP SCH ×2 (09:06→20:54)
[2018-10-08] MEDS: Rosuvastatin 10 MG TAB PO SCH (09:06)
[2018-10-08] MEDS: Polyethylene Glycol 3350 17 GM Packet PO SCH (09:07)
--- NOTE | 2018-10-08 13:08 | PDOC.PN ---
- Subjective Encounter Start Date: 10/08/18 Encounter Start Time: 13:06 Patient seen and examined, no new issues, all questions answered. - Objective Resuscitation Status - Order Detail: 09/27/18 21:41 Resuscitation Status Routine Co-Sign Provider: Resuscitation Status: DNAR: NO Resuscitation Discussed with: patient Additional comments: Jennie discussed with patient, in H&P Vital Signs & Weight: Vital Signs (12 hours) Temp Pulse Resp BP BP Pulse Ox 10/08/18 11:34 99.0 F 90 14 133/79 95 10/08/18 07:18 98.5 F 92 16 130/61 96 10/08/18 04:00 99 16 135/81 95 Weight Admit Weight 183 lb 8 oz Weight 197 lb 6 oz I&O: 10/07/18 10/08/18 10/09/18 06:59 06:59 06:59 Intake Total 3632 1968 1800 Output Total 2600 4100 3050 Balance 1032 2132 1250 Result Diagrams: 10/05/18 06:25 10/08/18 05:45 Additional Labs: Accuchecks 10/08/18 10/08/18 10/08/18 12:17 05:25 00:33 POC Glucose 133 H 98 132 H 10/07/18 16:44 POC Glucose 126 H Phys Exam - Physical Examination Constitutional: NAD HEENT: PERRLA, moist MMs, sclera anicteric +NG tube Neck: no nodes, no JVD, supple Respiratory: no wheezing, no rales, no rhonchi Cardiovascular: RRR, no significant murmur, no rub Gastrointestinal: soft, non-tender, no distention, positive bowel sounds Musculoskeletal: pulses present, edema present (trace) Dx/Plan (1) Bowel obstruction Code(s): K56.609 - UNSP INTESTNL OBST, UNSP TO PARTIAL VERSUS COMPLETE OBST Status: Acute Comment: due to inflammatory mass of sigmoid colon, likely diverticular disease and stricture, s/p sigmoid resection and descending colostomy, NG tube out and ice chips, bowel rest, antibiotics d/c'd 10/04/18 (2) GERD (gastroesophageal reflux disease) Code(s): K21.9 - GASTRO-ESOPHAGEAL REFLUX DISEASE WITHOUT ESOPHAGITIS Status: Chronic Comment: on Famotidine (3) Hypercholesterolemia Code(s): E78.00 - PURE HYPERCHOLESTEROLEMIA, UNSPECIFIED Status: Chronic (4) Hypertension Code(s): I10 - ESSENTIAL (PRIMARY) HYPERTENSION Status: Chronic Comment: decent control (5) Hypothyroidism Code(s): E03.9 - HYPOTHYROIDISM, UNSPECIFIED Status: Chronic (6) Abdominal distention Code(s): R14.0 - ABDOMINAL DISTENSION (GASEOUS) Status: Resolved - Plan * KUB in AM, small bowel follow throw shows possible obstruction still * will also start patient on IV lasix for now, she's gained some weight and also stated she had noticed swelling in her legs and some mild SOB when she lays down completely flat * no other changes in plan of care, cont current plan of care * case and plan d/w patient at length, she understood and agreed with this plan.
--- NOTE | 2018-10-08 13:12 | PRG ---
DATE OF SERVICE: 10/08/2018 SUBJECTIVE: Ms. Keshia Lopez is a very pleasant 77-year-old female, status post sigmoid colectomy, colonoscopy. ileus with abdominal bloating and swelling, nausea, and vomiting. She had NG tube. NG is draining bilious material. Also, the colostomy is working very well. She has quite a bit of fluid in the colostomy bag. She has no abdominal pain. She is actually feeling better. She is on TPN and also on NG suction. She had a small bowel series yesterday. It shows diffusely dilated small bowel loops and delayed passage of contrast into the colon. It took almost 8 hours to get the contrast into the colon. PHYSICAL EXAMINATION: GENERAL: Appears comfortable. VITAL SIGNS: Afebrile, pulse is 90, blood pressure 133/78. CARDIOVASCULAR SYSTEM: Within normal limits. LUNGS: Within normal limits. ABDOMEN: Actually soft and distended. Abdomen is nontender. She has hyperactive bowel sounds. LABORATORY DATA: From today, chem 7, sodium 137, potassium 4.2, chloride 101, bicarb 33, BUN is 16, creatinine 0.67, calcium 9.4, phosphorus 4.3, magnesium 1.9, bilirubin 0.2, AST is 18, ALT 9, alkaline phosphatase of 48, albumin 3. IMPRESSION: Postoperative ileus versus small bowel obstruction. However, the contrast has passed through the small bowel yesterday. There is delayed emptying of the small bowel. Her abdomen is actually less distended and very soft and nontender. RECOMMENDATIONS: 1. Continue . 2. Continue NG suction. 3. If the NG output is less, may consider removing NG tube. For now, I will leave the NG tube with suction. Job ID: [id number]
--- NOTE | 2018-10-08 21:58 | PRG ---
DATE OF SERVICE: 10/08/2018 SUBJECTIVE: The patient remains on the surgical floor. She is status post sigmoid colectomy, and is thought to have either a small bowel obstruction or postop ileus. The patient has been doing better. Her colostomy appears to be functioning well. There is approximately only 50 mL of liquid stool and slight amount of air in the bag itself. The patient states that her pain is controlled. She has been working with Physical and Occupational Therapies, and is tolerating a clear liquid diet. OBJECTIVE: VITAL SIGNS: Temperature 98.5, heart rate 92, blood pressure 130/61, respirations 16, oxygen saturation is 96% on room air. GENERAL: The patient is resting comfortably in bed. She appears comfortable and in no distress. ABDOMEN: No peritoneal signs. Has hypoactive bowel sounds. Again, the colostomy bag has a slight amount of air and scant amount of liquid stool. Ostomy itself appears viable. HEENT: Unremarkable. LUNGS: Clear to auscultation with good inspiratory and expiratory effort. HEART: Regular rate and rhythm. EXTREMITIES: Neurovascularly intact x4. DIAGNOSTIC AND LABORATORY DATA: There are no labs or radiographs to review this morning. ASSESSMENT AND PLAN: 1. Status post sigmoid colectomy. 2. Possible ileus versus obstruction. PLAN: Plan will be to administer neostigmine 0.5 mg subcutaneously q.6 hours and reassess the patient in the morning. The evaluation and examination were done with Dr. Esparza, this morning during rounds. Job ID: [id number]
[2018-10-08] MEDS: Multivitamins, Adult 10 ML, Multitrace-5 5 ML in D15W-AA 5% with Lytes 2,000 ML, Fat Em... IV SCH (22:41)
[2018-10-09] MEDS: Levothyroxine Sodium 88 MCG TAB PO SCH (04:36)
[2018-10-09] MEDS: Famotidine 20 MG TAB PO SCH ×2 (08:07→21:22)
[2018-10-09] MEDS: PARoxetine CR 12.5 MG TAB PO SCH (08:07)
[2018-10-09] MEDS: Rosuvastatin 10 MG TAB PO SCH (08:07)
[2018-10-09] MEDS: Enoxaparin Sodium 40 MG/0.4 ML SYRINGE SC SCH (08:08)
[2018-10-09] MEDS: Famotidine/PF 20 mg/2ml Vial SLOW IVP SCH ×2 (08:08→20:39)
[2018-10-09] MEDS: Furosemide 40 MG/4 ML VIAL SLOW IVP SCH (08:08)
[2018-10-09] MEDS: Polyethylene Glycol 3350 17 GM Packet PO SCH (08:08)
--- NOTE | 2018-10-09 09:15 | PDOC.PN ---
- Subjective Encounter Start Date: 10/09/18 Encounter Start Time: 09:14 Patient seen and examined, no new issues, all questions answered. - Objective Resuscitation Status - Order Detail: 09/27/18 21:41 Resuscitation Status Routine Co-Sign Provider: Resuscitation Status: DNAR: NO Resuscitation Discussed with: patient Additional comments: Jennie discussed with patient, in H&P Vital Signs & Weight: Vital Signs (12 hours) Temp Pulse Resp BP BP Pulse Ox 10/09/18 07:27 98 F 92 12 139/80 93 L 10/09/18 04:00 97.4 F L 93 16 130/80 94 L 10/08/18 23:49 98.4 F 87 18 133/82 95 10/08/18 22:30 96 Weight Admit Weight 183 lb 8 oz Weight 197 lb 6 oz I&O: 10/08/18 10/09/18 10/10/18 06:59 06:59 06:59 Intake Total 1968 4185.6 Output Total 4100 4750 Balance -2132 -564.4 Result Diagrams: 10/05/18 06:25 10/08/18 05:45 Additional Labs: Accuchecks 10/09/18 10/08/18 10/08/18 06:12 23:38 18:20 POC Glucose 130 H 125 H 134 H 10/08/18 12:17 POC Glucose 133 H Phys Exam - Physical Examination Constitutional: NAD HEENT: PERRLA, moist MMs, sclera anicteric +NG tube Respiratory: no wheezing, no rales, no rhonchi Cardiovascular: RRR, no significant murmur, no rub Gastrointestinal: soft, non-tender, no distention, positive bowel sounds Musculoskeletal: pulses present, edema present (trace) Dx/Plan (1) Bowel obstruction Code(s): K56.609 - UNSP INTESTNL OBST, UNSP TO PARTIAL VERSUS COMPLETE OBST Status: Acute Comment: due to inflammatory mass of sigmoid colon, likely diverticular disease and stricture, s/p sigmoid resection and descending colostomy, NG tube out and ice chips, bowel rest, antibiotics d/c'd 10/04/18 (2) GERD (gastroesophageal reflux disease) Code(s): K21.9 - GASTRO-ESOPHAGEAL REFLUX DISEASE WITHOUT ESOPHAGITIS Status: Chronic Comment: on Famotidine (3) Hypercholesterolemia Code(s): E78.00 - PURE HYPERCHOLESTEROLEMIA, UNSPECIFIED Status: Chronic (4) Hypertension Code(s): I10 - ESSENTIAL (PRIMARY) HYPERTENSION Status: Chronic Comment: decent control (5) Hypothyroidism Code(s): E03.9 - HYPOTHYROIDISM, UNSPECIFIED Status: Chronic (6) Abdominal distention Code(s): R14.0 - ABDOMINAL DISTENSION (GASEOUS) Status: Resolved - Plan * KUB ordered for this AM, pending * neostigmine given from sx team * labs in AM * no other changes in plan of care for now, cont with diuretic * plan d/w patient, she understood and agreed with this plan
--- NOTE | 2018-10-09 10:33 | RAD ---
EXAM: XR Abdomen 1 View/KUB PROVIDED CLINICAL HISTORY: Follow-up evaluation. COMPARISON: Small bowel study on 10/07/2018. FINDINGS: Nasogastric tube remains in place with tip overlying the the expected location of the gastric fundus. Visualized lung bases appear clear. The bowel gas pattern is nonspecific. Mild gaseous distention and prominence of loops of bowel in the left upper quadrant are noted. However, there has been interv al decompression of the dilated gas-filled loops of small bowel compared to the prior exam, and the multiple dilated loops of small bowel seen on the prior study are not seen on today's exam. Minimal r esidual contrast is seen in the colon. Skin clips again overlie the lower abdomen and pelvis. Multiple phleboliths overlie the pelvis. Degenerative changes in spine. No other interval change. IMPRESSION: Interval improvement in small bowel dilatation with only a few mildly distended gas-filled loops of s mall bowel in the left upper quadrant on today's exam. The bowel gas pattern is overall nonspecific on the current study.
[2018-10-09] MEDS ORDERED: Clopidogrel Bisulfate 75 MG TAB ONE (10:50)
--- NOTE | 2018-10-09 12:30 | PRG ---
DATE OF SERVICE: 10/09/2018 SUBJECTIVE: Keshia Lopez is a very pleasant 77-year-old female, status post sigmoid resection, colostomy. She also had ileus and was on NG suction with IV fluids and TPN. The NG tube was removed by Dr. Esparza this morning. She is on clear liquid diet. She has no nausea or vomiting. No abdominal pain. The colostomy is working well. PHYSICAL EXAMINATION: VITAL SIGNS: Afebrile. Pulse is 92, blood pressure is 139/80. HEENT: Conjunctivae clear. CARDIOVASCULAR: First and second sounds are heard. LUNGS: Clear to auscultation. ABDOMEN: Soft and nondistended. Bowel sounds are active. RECOMMENDATION: Clear liquid diet. If she tolerates clear liquid diet, hopefully diet can be advanced to a full liquid diet tomorrow. Job ID: [id number]
--- NOTE | 2018-10-09 19:37 | PRG ---
DATE OF SERVICE: 10/09/2018 SUBJECTIVE: This is a 77-year-old female. The patient remains on the surgical floor. She is status post sigmoid colectomy and was thought to have a small-bowel obstruction versus postop ileus. The patient's pain is controlled at this time. She has been working with Physical Therapy. The patient's NG tube was removed by Dr. Esparza today. OBJECTIVE: VITAL SIGNS: Temperature 98.0, pulse 92, respirations 14, SpO2 of 95% on room air, blood pressure 139/80. GENERAL: The patient is awake, alert, in no distress. ABDOMEN: Soft, nontender, nondistended. Colostomy bag has a slight amount of air and scant amount of liquid stool. Ostomy also appears viable. HEENT: Unremarkable. LUNGS: Clear to auscultation with good inspiratory and expiratory effort. HEART: Regular rate and rhythm. EXTREMITIES: Neurovascularly intact x4. DIAGNOSTIC DATA: Abdominal x-ray; interval improvement of small bowel dilation with only a few mildly distended gas-filled loops of small bowel in the left upper quadrant. LABORATORY DATA: There are no labs to evaluate today. IMPRESSION: 1. Status post sigmoid colectomy. 2. Postop ileus, resolved. PLAN: We will continue neostigmine remaining doses for 24 hours. We will continue the patient's TPN until tomorrow. We will place the patient on a clear liquid diet. The evaluation and exam were done with Dr. Esparza this morning during rounds. Job ID: [id number]
[2018-10-10 04:17] LABS: #Basophils 0.1 thou/uL (0.0-0.2); #Eosinphils 0.3 thou/uL (0.0-0.7); #Lymphocytes 1.6 thou/uL (1.20-3.40); #Monocytes 0.8 thou/uL (0.11-0.59); #Neutrophils 5.4 thou/uL (1.40-6.50); %Basophils 0.7 % (0.0-1.0); %Eosinophils 3.8 % (0.0-10.0); %Lymphocytes 19.7 % (21.0-51.0); %Neutrophils 65.9 % (42.0-75.0); Hemoglobin 9.7 g/dL (12.0-16.0); Mean Corpuscular HGB CONC 32.6 g/dL (32.0-36.0); Mean Platelet Volume 6.4 fL (7.4-10.4); Platelet Count 505 thou/uL (130-400); RBC Distribution Width 11.6 % (11.5-14.5); Red Blood Cell (RBC) Count 2.93 mill/uL (4.20-5.40); White Blood Cell (WBC) Count 8.2 thou/uL (4.8-10.8)
[2018-10-10] MEDS: Levothyroxine Sodium 88 MCG TAB PO SCH (05:30)
[2018-10-10 05:34] LABS: Anion Gap 11 mmol/L (10-20); BUN (Urea Nitrogen) 19 mg/dL (9.8-20.1); Calc. Creatinine Clearance 89 mL/min (70-130); Calcium 9.2 mg/dL (7.8-10.44); Carbon Dioxide 30 mmol/L (23-31); Chloride 100 mmol/L (98-107); Estimated GFR-MDRD 75; Glucose 104 mg/dL (83-110); Potassium 4.3 mmol/L (3.5-5.1); Sodium 137 mmol/L (136-145)
--- NOTE | 2018-10-10 08:04 | PDOC.PN ---
- Subjective Encounter Start Date: 10/10/18 Encounter Start Time: 11:10 Subjective: Patient reports bilateral thumb pain and swelling. No fever. Not having -: much ostomy output. Had NG tube out yesterday, no distension/pain/N/V -: since then. - Objective Resuscitation Status - Order Detail: 09/27/18 21:41 Resuscitation Status Routine Co-Sign Provider: Resuscitation Status: DNAR: NO Resuscitation Discussed with: patient Additional comments: Jennie discussed with patient, in H&P MAR Reviewed: Yes Vital Signs & Weight: Vital Signs (12 hours) Temp Pulse Resp BP Pulse Ox 10/10/18 04:45 98.2 F 101 H 18 144/79 H 94 L 10/10/18 04:00 98.2 F 96 16 93/60 94 L 10/09/18 23:55 98.5 F 95 16 93/57 L 94 L 10/09/18 20:39 98.6 F 96 16 104/78 96 Weight Admit Weight 183 lb 8 oz Weight 197 lb 6 oz I&O: 10/09/18 10/10/18 10/11/18 06:59 06:59 06:59 Intake Total 4185.6 1420 Output Total 4750 400 Balance -564.4 1020 Result Diagrams: 10/10/18 04:01 10/10/18 04:01 Additional Labs: Accuchecks 10/09/18 10/09/18 17:46 11:18 POC Glucose 111 H 153 H Phys Exam - Physical Examination Constitutional: NAD HEENT: moist MMs Respiratory: no wheezing, no rales, no rhonchi Cardiovascular: RRR, no significant murmur Gastrointestinal: soft, positive bowel sounds ostomy in place Bilateral 1st MCP joints swollen, warm, a bit red on left, and TTP Neurological: non-focal, moves all 4 limbs Psychiatric: normal affect, A&O x 3 Dx/Plan (1) Bowel obstruction Code(s): K56.609 - UNSP INTESTNL OBST, UNSP TO PARTIAL VERSUS COMPLETE OBST Status: Acute Comment: due to inflammatory mass of sigmoid colon, likely diverticular disease and stricture, s/p sigmoid resection and descending colostomy, NG tube out and ice chips, bowel rest, antibiotics d/c'd 10/04/18 (2) Hypercholesterolemia Code(s): E78.00 - PURE HYPERCHOLESTEROLEMIA, UNSPECIFIED Status: Chronic (3) Hypertension Code(s): I10 - ESSENTIAL (PRIMARY) HYPERTENSION Status: Chronic Comment: decent control (4) Hypothyroidism Code(s): E03.9 - HYPOTHYROIDISM, UNSPECIFIED Status: Chronic (5) GERD (gastroesophageal reflux disease) Code(s): K21.9 - GASTRO-ESOPHAGEAL REFLUX DISEASE WITHOUT ESOPHAGITIS Status: Chronic Comment: on Famotidine (6) Acute gout Code(s): M10.9 - GOUT, UNSPECIFIED Status: Acute Qualifiers: Gout site: hand Comment: restarting Uloric and giving dose of colchicine - Plan cont current plan of care, PT/OT advancing diet per surgery * . - Discharge Day Encounter end time: 11:20
[2018-10-10] MEDS: Enoxaparin Sodium 40 MG/0.4 ML SYRINGE SC SCH (08:56)
[2018-10-10] MEDS: Famotidine 20 MG TAB PO SCH ×2 (08:57→20:37)
[2018-10-10] MEDS: Polyethylene Glycol 3350 17 GM Packet PO SCH (08:57)
[2018-10-10] MEDS: Furosemide 40 MG/4 ML VIAL SLOW IVP SCH (08:57)
[2018-10-10] MEDS: Rosuvastatin 10 MG TAB PO SCH (08:57)
[2018-10-10] MEDS: Famotidine/PF 20 mg/2ml Vial SLOW IVP SCH ×2 (08:58→20:37)
[2018-10-10] MEDS: PARoxetine CR 12.5 MG TAB PO SCH (08:58)
[2018-10-10 10:45] VITALS: BMI 29.9
[2018-10-10] MEDS ORDERED: Ergocalciferol 1.25 MG(50,000 UNITS) CAP PO SCH (11:45)
[2018-10-10] MEDS ORDERED: Colchicine 0.6 MG TAB PO SCH (12:00)
--- NOTE | 2018-10-10 13:42 | PRG ---
DATE OF SERVICE: 10/10/2018 SUBJECTIVE: The patient reports feeling a little tired today. She denies any nausea or abdominal pain. Her ostomy is working well. She complains of her bumps being painful. PHYSICAL EXAMINATION: VITAL SIGNS: Temperature 98, pulse 97, and blood pressure 110/73. GENERAL: She is awake, alert, looks to be in good spirits. ABDOMEN: Soft and nondistended. Her ostomy is healthy. LABORATORY DATA: Her white count is 8.2, H and H are 9.7 and 29. Her electrolytes are fine. PLAN: Check uric acid level, full liquid diet, vitamins. Job ID: [id number]
--- NOTE | 2018-10-10 17:17 | PRG ---
DATE OF SERVICE: 10/10/2018 REASON FOR CONSULTATION: Diverticulitis, status post sigmoid resection and postoperative ileus. SUBJECTIVE: The patient states that she is feeling much better today with markedly decreased abdominal distention when compared to previous. She had the NG tube removed yesterday with no further reaccumulation of air, and a larger amount of air is present within the ostomy itself. She currently denies any nausea, vomiting, fevers, chills, or abdominal pain. She does have some increased tenderness to her index fingers and thumbs on the bilateral hands, which she attributes to possible gout exacerbation. OBJECTIVE: VITAL SIGNS: Temperature 98, pulse 97, blood pressure 110/73, respiratory rate 16, and saturating 94% on room air. GENERAL: The patient is lying in bed, in no acute distress. Alert and oriented x4. CARDIOVASCULAR: Regular rate and rhythm. RESPIRATORY: Clear to auscultation. ABDOMEN: Normoactive bowel sounds. Soft, nondistended. Ostomy with trapped air and in good condition with no evidence of skin breakdown. LABORATORY DATA: CBC with a white blood cell count of 8.2, hemoglobin 9.7, hematocrit 29.6, and platelets 505. Chemistry with a sodium of 137, potassium 4.3, chloride 100, CO2 of 30, BUN 19, creatinine 0.75, and glucose 104. IMAGING DATA: No current GI imaging is available for review. However, upon review of the surgical specimen obtained on September 29, 2018, it showed that it was indicative of diverticulitis with associated acute serositis without any evidence of malignancy. Given the histologic findings, it was suggestive of a full thickness perforation. ASSESSMENT AND PLAN: The patient is a 77-year-old female, presenting with acute bout of diverticulitis, complicated by colonic obstruction, now status post sigmoid colonic resection and colostomy placement. RECOMMENDATIONS: 1. We will continue to advance the patient's diet as tolerated in light of recent ileus. 2. We will continue to monitor the patient with serial abdominal exams for recurrence of her ileus (albeit unlikely). 3. Pain management per primary team. We will sign off at this time. Please call with any questions. Job ID: [id number]
[2018-10-11] MEDS: Levothyroxine Sodium 88 MCG TAB PO SCH (05:00)
[2018-10-11] MEDS ORDERED: Febuxostat [Uloric] 80 MG PO SCH (09:00)
[2018-10-11] MEDS: Rosuvastatin 10 MG TAB PO SCH (09:22)
[2018-10-11] MEDS: Furosemide 40 MG/4 ML VIAL SLOW IVP SCH (09:23)
[2018-10-11] MEDS: Famotidine/PF 20 mg/2ml Vial SLOW IVP SCH ×2 (09:23→21:58)
[2018-10-11] MEDS: Thiamine 100 MG TAB PO SCH (09:23)
[2018-10-11] MEDS: Polyethylene Glycol 3350 17 GM Packet PO SCH (09:24)
[2018-10-11] MEDS: Enoxaparin Sodium 40 MG/0.4 ML SYRINGE SC SCH (09:24)
[2018-10-11] MEDS: Famotidine 20 MG TAB PO SCH ×2 (09:24→20:18)
--- NOTE | 2018-10-11 13:44 | DIS ---
DATE OF ADMISSION: 09/26/2018 DATE OF DISCHARGE: 10/11/2018 DISCHARGE DIAGNOSES: Large bowel obstruction, chronic diverticulitis with stricture, postoperative ileus. PROCEDURES DURING ADMISSION: Exploratory laparotomy, sigmoid colon resection and colostomy, TPN therapy, central line placement. HOSPITAL COURSE: The patient was admitted, taken to the operating room, where she underwent a placement of central line as well as a sigmoid colectomy. Postoperatively, she did have some bowel activity. Her colostomy was working. Her diet was attempted to be advanced. She vomited and NG tube was placed. She got high volumes out. Her bowel was rested. Things look better. We tried it again. Again, she developed nausea and vomiting. NG tube was replaced. Small-bowel follow-through was performed. It showed some slowing, no transition zone. Then, GI gave her some neostigmine, which seemed to help and her bowel function return. She started on diet. She is tolerating well. Pain is controlled on basically Tylenol. She has been instructed this to colostomy care. She is discharged home in good condition on Zofran and hydrocodone. She will follow up with me in 2 weeks. Job ID: [id number]
[2018-10-11] MEDS: PARoxetine CR 12.5 MG TAB PO SCH (13:52)
[2018-10-11] MEDS: Ondansetron PF 4 MG/2 ML Vial IVP PRN (14:46)
--- NOTE | 2018-10-11 15:11 | PDOC.PN ---
- Subjective Encounter Start Date: 10/11/18 Encounter Start Time: 15:09 Subjective: Pt is seen and exammined, Toerating diet very well - Objective Resuscitation Status - Order Detail: 09/27/18 21:41 Resuscitation Status Routine Co-Sign Provider: Resuscitation Status: DNAR: NO Resuscitation Discussed with: patient Additional comments: Jennie discussed with patient, in H&P MAR Reviewed: Yes Vital Signs & Weight: Vital Signs (12 hours) Temp Pulse Resp BP BP Pulse Ox 10/11/18 11:31 99.2 F 94 18 108/74 94 L 10/11/18 08:00 98.7 F 90 18 136/78 93 L 10/11/18 04:46 98.6 F 91 14 106/70 93 L Weight Admit Weight 183 lb 8 oz Weight 197 lb 6 oz I&O: 10/10/18 10/11/18 10/12/18 06:59 06:59 06:59 Intake Total 1420 1090 Output Total 400 450 Balance 1020 640 Result Diagrams: 10/10/18 04:01 10/10/18 04:01 Phys Exam - Physical Examination HEENT: PERRLA Neck: no nodes, no JVD, supple, full ROM Respiratory: no wheezing, no rales, no rhonchi Cardiovascular: RRR, no significant murmur, no rub Gastrointestinal: soft, non-tender, no distention Incision look dry , healthy Dx/Plan (1) Bowel obstruction Code(s): K56.609 - UNSP INTESTNL OBST, UNSP TO PARTIAL VERSUS COMPLETE OBST Status: Acute Comment: due to inflammatory mass of sigmoid colon, likely diverticular disease and stricture, s/p sigmoid resection and descending colostomy, NG tube out and ice chips, bowel rest, antibiotics d/c'd 10/04/18 CT home today (2) GERD (gastroesophageal reflux disease) Code(s): K21.9 - GASTRO-ESOPHAGEAL REFLUX DISEASE WITHOUT ESOPHAGITIS Status: Chronic Comment: on Famotidine - Plan * . Review of Systems - Review of Systems Respiratory: negative: Cough, Dry, Shortness of Breath, Hemoptysis, SOB with Excertion, Pleuritic Pain, Sputum, Wheezing Cardiovascular: negative: chest pain, palpitations, orthopnea, paroxysmal nocturnal dyspnea, edema, light headedness, other Gastrointestinal: negative: Nausea, Vomiting, Abdominal Pain, Diarrhea, Constipation, Melena, Hematochezia, Other Genitourinary: negative: Dysuria, Frequency, Incontinence, Hematuria, Retention , Other - Medications/Allergies Allergies/Adverse Reactions: Allergies Allergy/AdvReac Type Severity Reaction Status Date / Time aspirin Allergy Severe Swollen Verified 09/26/18 23:46 Lips codeine Allergy Intermediate Rash Verified 09/26/18 23:46 Penicillins Allergy Verified 09/26/18 22:56 Medications: Current Medications Albuterol/Ipratropium (Duoneb) 3 ml NEB Q4H PRN PRN Reason: Wheezing Enoxaparin Sodium (Lovenox) 40 mg SC 0900 [facility] Last Admin: 10/11/18 09:24 Dose: 40 mg Ergocalciferol (Drisdol) 1.25 mg PO .3XMONTH [facility] Famotidine (Pepcid) 20 mg PO BID [facility] Last Admin: 10/11/18 09:24 Dose: Not Given Famotidine (Pepcid) 20 mg SLOW IVP BID [facility] Last Admin: 10/11/18 09:23 Dose: 20 mg Furosemide (Lasix) 40 mg SLOW IVP DAILY [facility] Last Admin: 10/11/18 09:23 Dose: 40 mg Hydralazine HCl (Apresoline) 10 mg SLOW IVP Q4H PRN PRN Reason: SBP > 170 or DBP > 100 Levothyroxine Sodium (Synthroid) 88 mcg PO 0600 [facility] Last Admin: 10/11/18 05:00 Dose: 88 mcg Neostigmine Methylsulfate (Neostigmine) 0.5 mg SC Q8H [facility] Last Admin: 10/11/18 13:53 Dose: 0.5 mg Olmesartan (Benicar) 40 mg PO DAILY [facility] Last Admin: 10/11/18 09:22 Dose: 40 mg Ondansetron HCl (Zofran) 4 mg IVP Q6H PRN PRN Reason: Nausea/Vomiting Last Admin: 10/11/18 14:46 Dose: 4 mg Paroxetine HCl (Paxil Cr) 37.5 mg PO DAILY [facility] Last Admin: 10/11/18 13:52 Dose: 37.5 mg Febuxostat [Uloric] (80 Mg) 0 each PO DAILY [facility] Polyethylene Glycol (Miralax) 17 gm PO DAILY [facility] Last Admin: 10/11/18 09:24 Dose: 17 gm Promethazine HCl (Phenergan) 12.5 mg IM Q4H PRN PRN Reason: Nausea/Vomiting Last Admin: 10/01/18 06:09 Dose: 12.5 mg Rosuvastatin Calcium (Crestor) 10 mg PO DAILY [facility] Last Admin: 10/11/18 09:22 Dose: 10 mg Sodium Chloride (Flush - Normal Saline) 10 ml IVF PRN PRN PRN Reason: Saline Flush Thiamine HCl (Thiamine) 100 mg PO DAILY [facility] Last Admin: 10/11/18 09:23 Dose: 100 mg
[2018-10-12] MEDS: Levothyroxine Sodium 88 MCG TAB PO SCH (04:59)
[2018-10-12] MEDS: Famotidine 20 MG TAB PO SCH (08:25)
[2018-10-12] MEDS: Polyethylene Glycol 3350 17 GM Packet PO SCH (08:25)
[2018-10-12] MEDS: Rosuvastatin 10 MG TAB PO SCH (08:26)
[2018-10-12] MEDS: PARoxetine CR 12.5 MG TAB PO SCH (08:26)
[2018-10-12] MEDS: Thiamine 100 MG TAB PO SCH (08:26)
[2018-10-12] MEDS: Furosemide 40 MG/4 ML VIAL SLOW IVP SCH (08:27)
[2018-10-12] MEDS: Famotidine/PF 20 mg/2ml Vial SLOW IVP SCH (08:27)
--- NOTE | 2018-10-12 10:11 | PRG ---
DATE OF SERVICE: 10/12/2018 SUBJECTIVE: The patient was supposed to be discharged yesterday; however, it did not work out for home health arrangements, and she is having issues with her colostomy bag leaking and still uncomfortable caring for it. We are having trouble finding a home health we are looking for a swing bed for her to go to. In the meantime, we will have her hang out here. She is doing fine. She is having no pain. She is eating. Her bowel is working. OBJECTIVE: VITAL SIGNS: Her temperature is 98.1, pulse 86, and blood pressure 121/71. GENERAL: She looks good. LUNGS: Clear. HEART: Regular rate and rhythm. ABDOMEN: Soft, nondistended, and nontender. Ostomy working well. ASSESSMENT: Stable. PLAN: Awaiting swing bed. Job ID: [id number]
[2018-10-12] MEDS: Enoxaparin Sodium 40 MG/0.4 ML SYRINGE SC SCH (10:14)
[2018-10-12 12:05] VITALS: BP 103/67; TEMP 98.5
== END 2018-10-12 15:37 | disposition home health service (06) | DRG 330 ==
LOC: ERS 18:27 → SURG A 22:55
PROVIDERS: ADMIT Internal Medicine; ATTEND Internal Medicine
PROC: 0DBN0ZZ Excision of Sigmoid Colon, Open Approach (ICD-10-PCS; principal; 2018-09-29)
PROC: 0D1M0Z4 Bypass Descending Colon to Cutaneous, Open Approach (ICD-10-PCS; 2018-09-29)
PROC: 02HV33Z Insertion of Infusion Device into Superior Vena Cava, Percutaneous Approach (ICD-10-PCS; 2018-09-29)
PROC: 3E0T3BZ Introduction of Anesthetic Agent into Peripheral Nerves and Plexi, Percutaneous Approach (ICD-10-PCS; 2018-09-29)
DX: K57.32 Diverticulitis of large intestine without perforation or abscess without bleeding (principal); N17.9 Acute kidney failure, unspecified; K56.7 Ileus, unspecified; E46 Unspecified protein-calorie malnutrition; E87.1 Hypo-osmolality and hyponatremia; K57.30 Diverticulosis of large intestine without perforation or abscess without bleeding; K63.9 Disease of intestine, unspecified; Z66 Do not resuscitate; K21.9 Gastro-esophageal reflux disease without esophagitis; E78.00 Pure hypercholesterolemia, unspecified; I10 Essential (primary) hypertension; E03.9 Hypothyroidism, unspecified; M10.9 Gout, unspecified; E83.42 Hypomagnesemia; E87.5 Hyperkalemia; Z91.81 History of falling; E78.5 Hyperlipidemia, unspecified; E86.0 Dehydration; Z68.27 Body mass index [BMI] 27.0-27.9, adult
CPT/HCPCS: 36415; 36416; 71045; 74018; 74022; 74177; 74250; 80048; 80053; 80061; 81003; 81015; 82550; 83605; 83690; 83735; 83880; 84100; 84134; 84443; 84484; 84550; 85025; 85610; 85730; 87040; 88307; 93005; 96360; 96361; 96374; 96375; 96376; J0131; J0670; J1100; J1650; J1885; J1940; J1956; J2001; J2250; J2270; J2405; J2550; J2704; J2710; J3010; J3475; J3490; Q9963; Q9966; S0028